=== PATIENT | male | born 1950 | race Caucasian/White ===

== ENCOUNTER → 2018-07-29 08:51 | Outpatient (CLI) | payer MEDICARE, OTHER, SELFPAY ==
[2018-07-29 10:42] LABS: ALB/GLOB Ratio 0.9 RATIO (0.9-2.4); AST(SGOT) 25 U/L (15-37); Alanine Aminotransfer ALT/SGPT 43 U/L (16-61); Albumin, Serum 3.6 g/dL (3.2-5.0); Alkaline Phosphatase 70 U/L (45-117); Anion Gap 8 (5-15); BUN 14 mg/dL (7-18); Calcium,Total 8.7 mg/dL (8.5-10.1); Chloride 109 mmol/L (98-107); Cholesterol 174 mg/dL (200); EST Glomerular Filtration Rate 79 mL/min (>60); Est Glom Filt Rate - Afr Amer 96 mL/min (>60); Globulin 3.8 g/dL (2.2-4.2); Glucose 93 mg/dL (74-106); High Density Lipoprotein 47 mg/dL; Potassium 3.9 mmol/L (3.5-5.1); Protein, Total 7.4 g/dL (6.4-8.2); Sodium Level 144 mmol/L (136-145); Triglycerides 148 mg/dL; Very Low Density Lipoprotein 30 mg/dL (5-40)
== END ==
PROVIDERS: Family Provider Family Medicine; PCP Family Medicine; Referring Provider Family Medicine; Visit Provider Family Medicine
DX: I10 Essential (primary) hypertension (principal); E78.00 Pure hypercholesterolemia, unspecified
CPT/HCPCS: 36415; 80053; 80061

== ENCOUNTER → 2019-10-06 09:28 | Outpatient (CLI) | payer MEDICARE, OTHER, SELFPAY ==
[2019-10-05 13:32] VITALS: BMI 37.0
[2019-10-06 13:24] LABS: ALB/GLOB Ratio 0.8 RATIO (0.9-2.4); AST(SGOT) 24 U/L (15-37); Alanine Aminotransfer ALT/SGPT 37 U/L (16-61); Albumin, Serum 3.4 g/dL (3.2-5.0); Alkaline Phosphatase 62 U/L (45-117); Anion Gap 8 (5-15); BUN 16 mg/dL (7-18); BUN/Creat Ratio 12.9 RATIO (10-20); Chloride 109 mmol/L (98-107); Cholesterol 162 mg/dL (200); Creatinine, Serum 1.24 mg/dL (0.70-1.30); EST Glomerular Filtration Rate 62 mL/min (>60); Est Glom Filt Rate - Afr Amer 74 mL/min (>60); Globulin 4.4 g/dL (2.2-4.2); Glucose 90 mg/dL (74-106); High Density Lipoprotein 51 mg/dL; Potassium 3.9 mmol/L (3.5-5.1); Protein, Total 7.8 g/dL (6.4-8.2); Sodium Level 142 mmol/L (136-145); Triglycerides 121 mg/dL; Very Low Density Lipoprotein 24 mg/dL (5-40)
== END ==
PROVIDERS: Family Provider Family Medicine; PCP Family Medicine; Visit Provider Family Medicine
DX: E78.00 Pure hypercholesterolemia, unspecified (principal)
CPT/HCPCS: 36415; 80053; 80061

== ENCOUNTER → 2020-10-05 12:18 | Outpatient (CLI) | payer MEDICARE, OTHER, SELFPAY ==
[2020-10-05 15:00] LABS: Hematocrit 38.9 % (40-54); Hemoglobin 13.4 g/dL (13.0-16.5); Mean Corp Hgb Conc 34.4 g/dL (32-36); Mean Corpuscular Volume 98.7 fL (80-94); Mean Platelet Vol. 9.5 fl (6.2-12.0); POSITIVE COUNT YES; POSITIVE MORPHOLOGY YES; Platelet Count 234 K/mm3 (150-450); RBC Distribution Width CV 13.2 % (11.6-14.6); RBC Distribution Width SD 46.7 fl (35.1-43.9); Red Blood Count 3.94 M/mm3 (4.6-6.2); White Blood Count 4.8 K/mm3 (4.4-11.0)
[2020-10-05 15:01] LABS: Differential Indicated MANUAL DIFF
[2020-10-05 15:20] LABS: Eosinophil 1 % (0-5); Lymphocyte 16 % (19-41); Metamyelocyte 4 % (0-1); Monocyte 13 % (0-10); Myelocyte 1 (0-0); Neutrophil-Band 1 % (0-5); Neutrophil-Segmented 63 % (47-70); Plasma Cell 1 %; Total Cells Counted 100 (MANUAL DIFF)
[2020-10-05 15:21] LABS: Platelet Estimate ADEQUATE (ADEQ); Red Cell Morphology NORM C+C NORMAL (NORM C&C)
[2020-10-05 15:22] LABS: Absolute Lymphocyte Count 0.77 X10^3/uL (0.83-4.51); Absolute Neutrophil Count 3.1 X10^3/uL (2.0-7.7)
[2020-10-05 15:42] LABS: ALB/GLOB Ratio 0.8 RATIO (0.9-2.4); AST(SGOT) 65 U/L (15-37); Alanine Aminotransfer ALT/SGPT 76 U/L (16-61); Albumin, Serum 3.5 g/dL (3.2-5.0); Alkaline Phosphatase 57 U/L (45-117); Anion Gap 11 (5-15); BUN 22 mg/dL (7-18); BUN/Creat Ratio 17.9 RATIO (10-20); Calcium,Total 9.1 mg/dL (8.5-10.1); Chloride 110 mmol/L (98-107); Creatinine, Serum 1.23 mg/dL (0.70-1.30); EST Glomerular Filtration Rate 62 mL/min (>60); Est Glom Filt Rate - Afr Amer 75 mL/min (>60); Globulin 4.5 g/dL (2.2-4.2); Glucose 91 mg/dL (74-106); Sodium Level 144 mmol/L (136-145); Thyroid Stim Hormone (TSH) 0.99 uIU/mL (0.358-3.74)
[2020-10-06 13:54] LABS: Pathologist Review Reviewed
== END ==
PROVIDERS: PCP Family Medicine; Referring Provider Internal Medicine; Visit Provider Internal Medicine
DX: U07.1 COVID-19 (principal); R53.83 Other fatigue; K52.9 Noninfective gastroenteritis and colitis, unspecified
CPT/HCPCS: 36415; 80053; 84443; 85025; 87635; U0003

== ENCOUNTER → 2021-02-27 11:54 | Outpatient (CLI) | payer MEDICARE, OTHER, SELFPAY ==
[2021-02-27 11:29] VITALS: BMI 37.0
[2021-02-27 15:28] LABS: ALB/GLOB Ratio 1.1 RATIO (0.9-2.4); AST(SGOT) 42 U/L (15-37); Alanine Aminotransfer ALT/SGPT 62 U/L (16-61); Albumin, Serum 3.8 g/dL (3.2-5.0); Alkaline Phosphatase 64 U/L (45-117); Anion Gap 5 (5-15); BUN 14 mg/dL (7-18); BUN/Creat Ratio 11.2 RATIO (10-20); Calcium,Total 8.9 mg/dL (8.5-10.1); Chloride 108 mmol/L (98-107); Creatinine, Serum 1.25 mg/dL (0.70-1.30); EST Glomerular Filtration Rate 61 mL/min (>60); Est Glom Filt Rate - Afr Amer 73 mL/min (>60); Globulin 3.6 g/dL (2.2-4.2); Glucose 94 mg/dL (74-106); Potassium 4.2 mmol/L (3.5-5.1); Protein, Total 7.4 g/dL (6.4-8.2); Sodium Level 140 mmol/L (136-145)
== END ==
PROVIDERS: PCP Family Medicine; Referring Provider Family Medicine; Visit Provider Family Medicine
DX: I10 Essential (primary) hypertension (principal)
CPT/HCPCS: 36415; 80053

== ENCOUNTER 2022-02-14 15:18 | Inpatient (IN) | payer MEDICARE, OTHER, SELFPAY ==
[2022-02-14 15:19] VITALS: TEMP 38.3; BMI 38.6
[2022-02-14 15:24] VITALS: BP 142/67; PULSE 103; RESP 21; O2SAT 98
--- NOTE | 2022-02-14 15:41 | EKG12_ITS ---
Test Reason : Blood Pressure : / mmHG Vent. Rate : 094 BPM Atrial Rate : 094 BPM P-R Int : 110 ms QRS Dur : 078 ms QT Int : 354 ms P-R-T Axes : 072 031 053 degrees QTc Int : 442 ms Sinus rhythm with short [place] with occasional Premature ventricular complexes Nonspecific ST abnormality Abnormal ECG Confirmed by THADDEUS ESTEVEZ, VIRIDIANA ([id number]), editor sound HANS NORRIS ([id number]) on 02/18/2022 1:51:51 PM Referred By: LINDA/PAIGE Confirmed By:GAIL TRAVIS MD
--- NOTE | 2022-02-14 15:42 | EDS_ITS ---
HPI History of Present Illness Chief Complaint: Weakness Informant: patient Onset/Context/Timing Onset: Today Quality: weak Location: all over Current Severity: Moderate Maximum Severity: Moderate Worsened by: unk Relieved by: nothing Associated Symptoms Associated Symptoms: increased swelling both legs Narrative Narrative: Patient presented after 2 separate falls today, he denies any injury with them, the first time EMS came it was about 5 AM and he refused to come to the hospital and said he was fine. He was ambulatory with his walker after that and then collapsed in the bathroom this afternoon just prior to arrival. Landed on his right side and denies any pain or injury from now. States he was fine yesterday able to walk with his walker okay. Today he states he feels weak all over, extremely different compared with yesterday. He denies any other new symptoms. He has chronic edema both legs, he does not leave the house and does not do much physical activity. He is on Lasix for the edema, he has been out of the Lasix for 2 weeks approximately. He is almost out of his blood pressure medication but has been out of no other medications recently. Family states they were unable to get him to stand on his own even with significant assistance today hence coming to the emergency department. [facility] Medical History (Updated 02/14/22 @ 16:[address] Sean Arreola MD) Arthritis Hearing problem High cholesterol Hypertension Kidney stones Spinal stenosis of lumbar region Home Medications multivitamin 1 tab PO DAILY 10/05/19 [History Last Taken 02/14/22] amlodipine-benazepril 1 cap PO DAILY 02/14/22 [History Last Taken 02/14/22] furosemide 20 mg PO DAILY 02/14/22 [History Last Taken 2 Weeks Ago ~01/31/22] Allergy/AdvReac Type Severity Reaction Status Date / Time No Known Allergies Allergy Verified 02/27/21 11:28 Family History Father Heart disease Hypertension Mother Diabetes Surgical History History of nasal surgery history stapedectomy Social History Smoking Status: Never smoker alcohol intake: current alcohol intake frequency: holidays/special occasions only substance use type: does not use what type of physical activity do you participate in: none ROS ROS ED Constitutional Constitutional ED: Denies chills or fever(s) Eyes Eyes: Denies change in vision or diplopia ENT ENT ED: Denies rhinorrhea or sore throat Cardiovascular Cardiovascular: Reports pedal edema; Denies chest pain or palpitations Respiratory/Chest Respiratory/Chest: Denies cough or dyspnea Gastrointestinal Gastrointestinal: Denies abdominal pain, diarrhea, nausea or vomiting Genitourinary Genitourinary ED: Denies dysuria or hematuria Musculoskeletal Musculoskeletal: Denies back pain or neck pain Integumentary Denies abscess or rash Neurologic Neurologic: Reports other Details: generalized nonfocal weakness ; Denies headache(s), paresthesias or weakness Psychiatric Psychiatric: Denies anxiety or suicidal thoughts EXAM Physical Exam Const Vital Signs: 02/14/22 15:19 02/14/22 15:24 02/14/22 15:59 Temperature 100.9 F H Temperature Source Oral Pulse Rate 103 H Respiratory Rate 21 H Respiratory Pattern Normal Blood Pressure 142/67 H Blood Pressure Mean 92 Pulse Ox 98 Oxygen Delivery Method Room Air Room Air 02/14/22 17:59 Temperature Temperature Source Pulse Rate 97 Respiratory Rate 23 H Respiratory Pattern Blood Pressure 140/81 H Blood Pressure Mean 100 Pulse Ox 97 Oxygen Delivery Method Room Air Positive well nourished, well developed, obese and unkempt General Appearance ED: unkempt, well developed and NAD Nutritional Appearance: obese HEENT Reports moist mucous membranes normocephalic and atraumatic Eyes PERRL and EOMs intact bilaterally Neck full ROM and supple Chest Wall inspection of chest normal and palpation of chest normal Resp normal respiratory effort and clear to auscultation bilaterally Cardio regular rate and regular rhythm Heart Sounds: murmur systolic II/ decrescendo left sternal border GI non-tender and non-distended Auscultation: normoactive bowel sounds Palpation: soft Back/Spine no CVA tenderness Back/Spine Narrative: Nontender, nonerythematous raised calluses on low back. No open wounds. General Back: other FROM Extremity normal to inspection Extremity Narrative: Diffuse scaly calluses without tenderness or open wounds on both feet. Chronic stasis dermatitis of both lower legs without signs of acute infection/wound. General Extremety ED: Yes edema; Negative for pulses abnormal or tenderness General Extremity: edema bilateral lower extremity Details: moderate; Negative for pulses abnormal Neuro oriented x3, CN's II-XII intact bilaterally and no sensory deficits noted Sensorium / Orientation: awake and alert Motor Exam: strength 5/5 throughout Psych Appearance: unkempt Skin no rashes or lesions noted and no wounds MDM MDM MDM Narrative Medical decision making narrative: Work-up unremarkable except for a slightly elevated creatinine compared with baseline. He was given Lasix 20 mg IV, he used to be on Lasix 20 mg orally daily, he only urinated a little. Given that he is too weak to stand and function, lots of leg edema, plan is for admission with diuresis and further evaluation/treatment. Lab Data Attestation: I reviewed the patient's lab results. Labs: Laboratory Results - last 24 hr 02/14/22 02/14/22 02/14/22 15:50 15:50 15:50 WBC 6.0 RBC 3.91 L Hgb 13.6 Hct 38.8 L MCV 99.2 H MCH 34.8 H MCHC 35.1 RDW Std Deviation 49.0 H RDW Coeff of Lucien 13.8 Plt Count 129 L MPV 9.2 Immature Gran % (Auto) 1.200 H Neut % (Auto) 75.0 H Lymph % (Auto) 11.2 L [place] % (Auto) 12.4 H Eos % (Auto) 0.0 Baso % (Auto) 0.2 Absolute Neuts (auto) 4.5 Absolute Lymphs (auto) 0.67 L Nucleated RBC % 0 Sodium 140 Potassium 4.0 Chloride 109 H Carbon Dioxide 26.0 Anion Gap 5 BUN 16 Creatinine 1.42 H Estim Creat Clear Calc 49.27 Est GFR (MDRD) Af Amer 63 Est GFR (MDRD) Non-Af 52 L BUN/Creatinine Ratio 11.3 Glucose 127 H Lactic Acid 1.8 Calcium 8.8 Total Bilirubin 1.20 H AST 34 ALT 42 Alkaline Phosphatase 56 Troponin I High Sens 7 Total Protein 7.7 Albumin 3.6 Globulin 4.1 Albumin/Globulin Ratio 0.9 Urine Color Urine Clarity Urine pH Ur Specific [place] Urine Protein Urine Glucose (UA) Urine Ketones Urine Occult Blood Urine Nitrite Urine Bilirubin Urine Urobilinogen Ur Leukocyte Esterase Urine RBC Urine WBC Ur Squamous Epith Cells Urine Bacteria Urine Mucus 02/14/22 17:17 WBC RBC Hgb Hct MCV MCH MCHC RDW Std Deviation RDW Coeff of Lucien Plt Count MPV Immature Gran % (Auto) Neut % (Auto) Lymph % (Auto) [place] % (Auto) Eos % (Auto) Baso % (Auto) Absolute Neuts (auto) Absolute Lymphs (auto) Nucleated RBC % Sodium Potassium Chloride Carbon Dioxide Anion Gap BUN Creatinine Estim Creat Clear Calc Est GFR (MDRD) Af Amer Est GFR (MDRD) Non-Af BUN/Creatinine Ratio Glucose Lactic Acid Calcium Total Bilirubin AST ALT Alkaline Phosphatase Troponin I High Sens Total Protein Albumin Globulin Albumin/Globulin Ratio Urine Color Yellow Urine Clarity Clear Urine pH 5.0 Ur Specific [place] 1.015 Urine Protein Negative Urine Glucose (UA) Normal Urine Ketones Negative Urine Occult Blood Negative Urine Nitrite Negative Urine Bilirubin Negative Urine Urobilinogen Normal Ur Leukocyte Esterase Negative Urine RBC 0 SEEN Urine WBC 0 SEEN Ur Squamous Epith Cells 0 SEEN Urine Bacteria 0 SEEN Urine Mucus 0 SEEN Radiography Chest X-Ray - ED: 1 View, Read by ED Physician and No Acute Disease Diagnostic Testing: Clinical Impression(s) from Imaging Studies Chest X-Ray 02/14/22 16:10 IMPRESSION: Normal x-ray examination of the chest. Electronically Signed: Ino Pinedo DO at 16:44 EDT Reading Location ID and State: [facility] / [place] Tel [phone], Service support , EKG Initial EKG: Attestation: I personally reviewed and interpreted this EKG as follows: Interpretation: Sinus Rhythm, No Acute Injury Pattern and Non-Specific ST Changes Prior EKG tracings: not available for review Discharge Plan Dx/Rx/DC Orders Clinical Impression: Inability to walk, Bilateral leg edema, Generalized weakness Disposition Disposition: Acute Care Hospital [facility]
[2022-02-14 16:09] LABS: Absolute Lymphocyte Count 0.67 X10^3/uL (0.83-4.51); Absolute Neutrophil Count 4.5 X10^3/uL (2.0-7.7); Basophil# 0.01 X10^3/uL; Basophil% 0.2 % (0-1); Hematocrit 38.8 % (40-54); Hemoglobin 13.6 g/dL (13.0-16.5); Lymphocyte # 0.67 X10^3/ul (0.83-4.51); Lymphocyte % 11.2 % (19-41); Mean Corp Hgb Conc 35.1 g/dL (32-36); Mean Corpuscular Hgb 34.8 pg (27.0-32.0); Mean Corpuscular Volume 99.2 fL (80-94); Mean Platelet Vol. 9.2 fl (6.2-12.0); Monocyte# 0.74 X10^3/uL; Monocyte% 12.4 % (0-10); NRBC Flagged by Analyzer 0 % (0-5); Neutrophil # 4.49 X10^3/uL (2.7-7.7); Platelet Count 129 K/mm3 (150-450); RBC Distribution Width CV 13.8 % (11.6-14.6); Red Blood Count 3.91 M/mm3 (4.6-6.2)
--- NOTE | 2022-02-14 16:10 | RAD_ITS ---
STUDY: X-RAY CHEST REASON FOR EXAM: Male, 71 years old. Weakness TECHNIQUE: Frontal view COMPARISON: 10/22/2012 FINDINGS: The lungs are clear and expanded. There is no demonstrated pleural abnormality. Normal size heart. Normal mediastinum and ashley. Normal visualized pulmonary arteries. Normal visualized aortic arch and descending thoracic aorta. Normal visualized thoracic spine. Normal visualized ribs, clavicles, and shoulders. There is no demonstrated abnormality of the visualized soft tissue structures of the upper abdomen. RAD/Chest 1 View (Portable) IMPRESSION: Normal x-ray examination of the chest. Electronically Signed: Ino Pinedo DO at 16:44 EDT ,
[2022-02-14] MEDS: Furosemide 20 MG/2 ML VIAL IV (16:30)
[2022-02-14 16:31] LABS: Lactic Acid 1.8 mmol/L (0.4-1.9)
[2022-02-14 16:35] LABS: ALB/GLOB Ratio 0.9 RATIO (0.9-2.4); AST(SGOT) 34 U/L (15-37); Alanine Aminotransfer ALT/SGPT 42 U/L (16-61); Albumin, Serum 3.6 g/dL (3.2-5.0); Alkaline Phosphatase 56 U/L (45-117); Anion Gap 5 (5-15); BUN 16 mg/dL (7-18); BUN/Creat Ratio 11.3 RATIO (10-20); Calcium,Total 8.8 mg/dL (8.5-10.1); Chloride 109 mmol/L (98-107); Creatinine, Serum 1.42 mg/dL (0.70-1.30); EST Glomerular Filtration Rate 52 mL/min (>60); Est Glom Filt Rate - Afr Amer 63 mL/min (>60); Estimated Creatinine Clearance 49.27 ml/min; Globulin 4.1 g/dL (2.2-4.2); Glucose 127 mg/dL (74-106); Protein, Total 7.7 g/dL (6.4-8.2); Sodium Level 140 mmol/L (136-145); Troponin-I HS 7 pg/mL (3.0-78.0)
[2022-02-14 17:22] LABS: Bacteria 0 SEEN /hpf (None Seen); Mucous, Urine 0 SEEN /hpf (<or=2+); Red Blood Cells-Urine 0 SEEN /hpf (0-5); Squamous Epithelial Cells - UA 0 SEEN /hpf (0-5); White Blood Cells 0 SEEN /hpf (0-5)
[2022-02-14 17:32] LABS: Color, Urine Yellow (Yellow); Glucose, Dipstick Normal (Normal); Ketone-Dipstick Negative (Negative); Leukocyte Esterase-Dipstick Negative /ul (Negative); Nitrite-Dipstick Negative (Negative); Occult Blood-Urine Negative /ul (Negative); Protein-Dipstick Negative (Negative); Specific Gravity, Urine 1.015 (1.002-1.030); Urine Bilirubin Dipstick Negative (Negative); Urine Clarity Clear (Clear); Urine Urobilinogen Normal (Normal)
[2022-02-14 17:59] VITALS: BP 140/81; PULSE 97; RESP 23; O2SAT 97
[2022-02-14 18:48] VITALS: BP 122/73; PULSE 91; RESP 15; TEMP 37.6; O2SAT 97
[2022-02-14 19:00] VITALS: BP 134/64; PULSE 89; RESP 20; O2SAT 97
--- NOTE | 2022-02-14 19:33 | PCM.HP.STD ---
HPI - General General Date of Admission: 02/14/22 HPI Narrative ZACHERY PATEL, is a 71 M who presents to the hospital with weakness. He states yesterday he felt fine however today he fell twice and normally he is able to pull himself up if he needs to but today after he he had fallen he was unable to pull himself up at all due to upper extremity weakness. He said the first fall happened when his legs did not support him on the side of the bed and he slid to the ground. The second fall occurred when his walker got away from him and he fell to the ground and he was unable to get up. Denies hitting his head. Chest x-ray was unremarkable, and UA does not show an infection. He denies any signs of a skin infection or cellulitis denies any fevers or chills. No shortness of breath or chest pain. He has not been taking his Lasix because he ran out of the prescription and has noticed that his legs are more swollen than normal. [facility] Medical History Arthritis Hearing problem High cholesterol Hypertension Kidney stones Spinal stenosis of lumbar region Home Medications multivitamin 1 tab PO DAILY 10/05/19 [History Last Taken 02/14/22] amlodipine-benazepril 1 cap PO DAILY 02/14/22 [History Last Taken 02/14/22] furosemide 20 mg PO DAILY 02/14/22 [History Last Taken 2 Weeks Ago ~01/31/22] Allergy/AdvReac Type Severity Reaction Status Date / Time No Known Allergies Allergy Verified 02/27/21 11:28 Family History Father Heart disease Hypertension Mother Diabetes Surgical History History of nasal surgery history stapedectomy Social History Smoking Status: Never smoker alcohol intake: current alcohol intake frequency: holidays/special occasions only substance use type: does not use what type of physical activity do you participate in: none ROS Constitutional Constitutional: Reports weakness; Denies chills, fatigue, fever(s) or malaise Eyes Eyes: Denies blurry vision ENT HEENT: Denies headache(s) or nasal discharge Cardiovascular Cardiovascular: Denies chest pain, dyspnea on exertion or syncope Respiratory/Chest Respiratory/Chest: Denies cough, shortness of breath at rest or shortness of breath with exertion Gastrointestinal Gastrointestinal: Denies constipation, diarrhea, nausea or vomiting Genitourinary Genitourinary: Denies dysuria Neurologic Neurologic: Denies focal weakness, numbness or tremor(s) Psychiatric Psychiatric: Denies anxiety or depression Vital Signs Vital Signs Vital Signs: 02/14/22 15:19 02/14/22 15:24 02/14/22 15:59 Temperature 100.9 F H Temperature Source Oral Pulse Rate 103 H Respiratory Rate 21 H Respiratory Pattern Normal Blood Pressure 142/67 H Blood Pressure Mean 92 Pulse Ox 98 Oxygen Delivery Method Room Air Room Air 02/14/22 17:59 02/14/22 18:48 02/14/22 19:00 Temperature 99.7 F H Temperature Source Temporal Pulse Rate 97 91 89 Respiratory Rate 23 H 15 20 H Respiratory Pattern Blood Pressure 140/81 H 122/73 H 134/64 H Blood Pressure Mean 100 89 87 Pulse Ox 97 97 97 Oxygen Delivery Method Room Air Room Air Room Air Weight Weight: 269 lb 2.951 oz Body Mass Index (BMI) 38.6 Physical Exam Const alert and oriented x3 General Appearance: cooperative HEENT normocephalic and moist oral mucous membranes Eyes PERRL, EOMs intact bilaterally and conjunctivae normal Neck supple and no JVD Resp normal respiratory effort, no retractions, no use of accessory muscles and clear to auscultation bilaterally Auscultation: Negative for crackles, rales, rhonchi or wheezes Cardio regular rate, regular rhythm, S1 normal heart sound, S2 normal heart sound and no murmurs GI soft to palpation, non-tender and non-distended; Negative for hepatosplenomegaly Extremity General Extremity: edema; Negative for clubbing or cyanosis Skin no rashes or lesions noted Neuro no focal motor deficits and no sensory deficits noted Psych affect normal Appearance: appropriate Results Lab / Micro Data Result Diagrams: 02/14/22 15:50 02/14/22 15:50 Labs: Laboratory Results - last 24 hr 02/14/22 15:50: WBC 6.0, RBC 3.91 L, Hgb 13.6, Hct 38.8 L, MCV 99.2 H, MCH 34.8 H, MCHC 35.1, RDW Std Deviation 49.0 H, RDW Coeff of Lucien 13.8, Plt Count 129 L, MPV 9.2, Immature Gran % (Auto) 1.200 H, Neut % (Auto) 75.0 H, Lymph % (Auto) 11.2 L, [place] % (Auto) 12.4 H, Eos % (Auto) 0.0, Baso % (Auto) 0.2, Absolute Neuts (auto) 4.5, Absolute Lymphs (auto) 0.67 L, Nucleated RBC % 0 02/14/22 15:50: Sodium 140, Potassium 4.0, Chloride 109 H, Carbon Dioxide 26.0, Anion Gap 5, BUN 16, Creatinine 1.42 H, Estim Creat Clear Calc 49.27, Est GFR (MDRD) Af Amer 63, Est GFR (MDRD) Non-Af 52 L, BUN/Creatinine Ratio 11.3, Glucose 127 H, Calcium 8.8, Total Bilirubin 1.20 H, AST 34, ALT 42, Alkaline Phosphatase 56, Troponin I High Sens 7, Total Protein 7.7, Albumin 3.6, Globulin 4.1, Albumin/Globulin Ratio 0.9 02/14/22 15:50: Lactic Acid 1.8 02/14/22 17:17: Urine Color Yellow, Urine Clarity Clear, Urine pH 5.0, Ur Specific [place] 1.015, Urine Protein Negative, Urine Glucose (UA) Normal, Urine Ketones Negative, Urine Occult Blood Negative, Urine Nitrite Negative, Urine Bilirubin Negative, Urine Urobilinogen Normal, Ur Leukocyte Esterase Negative, Urine RBC 0 SEEN, Urine WBC 0 SEEN, Ur Squamous Epith Cells 0 SEEN, Urine Bacteria 0 SEEN, Urine Mucus 0 SEEN Radiology Impression Chest X-Ray 02/14/22 16:10 IMPRESSION: Normal x-ray examination of the chest. Electronically Signed: Ino Pinedo DO at 16:44 EDT Reading Location ID and State: [facility] / [place] Tel [phone], Service support , Assessment & Plan Assessment/Plan (1) Bilateral leg edema: (2) Generalized weakness: PLAN: 1. Generalized weakness with inability to complete ADLs ?Unsure as to the etiology at this time, infectious work-up so far is negative ?Creatinine is elevated to 1.42 however this is not consistent with an JONATHON as his baseline is around 1.2 he was given 20 mg of IV Lasix in the ER ?We will follow-up electrolytes in the morning ?PT/OT for evaluation, may need placement 2. HTN/edema ?Continue with his home Norvasc and benazepril combination ?Blood pressures are stable ?Part of the swelling could be as a side effect to his amlodipine ?I do not see anywhere in the chart where he is ever had an echo however his symptomatology is not consistent with CHF at this time DVT: Lovenox Charges/Coding Visit Charges OBSV E&M: 30553 Initial observation care L2
[2022-02-14 19:41] VITALS: BMI 37.7
[2022-02-14 19:45] VITALS: BP 138/72; PULSE 90; RESP 18; TEMP 36.9; O2SAT 96
[2022-02-14] MEDS: Menthol/Lanolin/Calamine/Znox 113 GM Tube 1 APPLIC TOPICAL (22:47)
[2022-02-14] MEDS: Nystatin Ointment 1 APPLIC TOPICAL (22:48)
[2022-02-15 02:28] VITALS: BP 123/70; PULSE 91; RESP 16; TEMP 37.4; O2SAT 93
[2022-02-15] MEDS: Nystatin Ointment 1 APPLIC TOPICAL ×3 (05:33→23:57)
[2022-02-15] MEDS: Menthol/Lanolin/Calamine/Znox 113 GM Tube 1 APPLIC TOPICAL ×3 (05:33→23:57)
[2022-02-15 05:46] LABS: Absolute Lymphocyte Count 0.97 X10^3/uL (0.83-4.51); Absolute Neutrophil Count 4.1 X10^3/uL (2.0-7.7); Basophil# 0.02 X10^3/uL; Basophil% 0.3 % (0-1); Eosinophil# 0.03 X10^3/uL; Eosinophils% 0.5 % (0-5); Hematocrit 36.7 % (40-54); Hemoglobin 12.6 g/dL (13.0-16.5); Lymphocyte # 0.97 X10^3/ul (0.83-4.51); Mean Corp Hgb Conc 34.3 g/dL (32-36); Mean Corpuscular Hgb 34.3 pg (27.0-32.0); Mean Platelet Vol. 9.2 fl (6.2-12.0); Monocyte# 0.87 X10^3/uL; Monocyte% 14.4 % (0-10); NRBC Flagged by Analyzer 0 % (0-5); Neutrophil % 67.8 % (47-70); Platelet Count 115 K/mm3 (150-450); RBC Distribution Width CV 13.8 % (11.6-14.6); RBC Distribution Width SD 49.5 fl (35.1-43.9); Red Blood Count 3.67 M/mm3 (4.6-6.2); White Blood Count 6.1 K/mm3 (4.4-11.0)
[2022-02-15 06:07] LABS: Anion Gap 3 (5-15); BUN 18 mg/dL (7-18); BUN/Creat Ratio 14.8 RATIO (10-20); Calcium,Total 8.3 mg/dL (8.5-10.1); Chloride 108 mmol/L (98-107); Creatinine, Serum 1.22 mg/dL (0.70-1.30); EST Glomerular Filtration Rate 62 mL/min (>60); Est Glom Filt Rate - Afr Amer 75 mL/min (>60); Estimated Creatinine Clearance 57.34 ml/min; Glucose 116 mg/dL (74-106); Potassium 3.8 mmol/L (3.5-5.1); Sodium Level 139 mmol/L (136-145)
[2022-02-15 07:37] LABS: Magnesium 1.8 mg/dL (1.6-2.6); Phosphorus 2.9 mg/dL (2.5-4.9)
--- NOTE | 2022-02-15 07:58 | PCM.PN.HOSP ---
Subjective Subjective Follow-up on debility, worsening right leg weakness: Patient was seen and examined. He complains of unable to stand that was noticed yesterday. He has history of chronic back pain from spinal stenosis and uses a walker at baseline. He denied any fever or chills. Objective Data Objective Data Vital Signs: Vital Signs Temp Pulse Resp BP Pulse Ox 99.3 F H 91 16 123/70 H 93 02/15/22 02:28 02/15/22 02:28 02/15/22 02:28 02/15/22 02:28 02/15/22 02:28 Oxygen Delivery Method Room Air Weight: 119.5 kg Body Mass Index (BMI) 37.7 Intake & Output: Intake and Output for Last 24 Hours 02/13/22 02/14/22 02/15/22 23:59 23:59 23:59 Intake Total 50 / 50 Output Total 300 / 300 Balance -300 / -300 50 / 50 Lab / Micro Data Result Diagrams: 02/15/22 05:20 02/15/22 05:20 Labs: Laboratory Results - last 24 hr 02/14/22 15:50: WBC 6.0, RBC 3.91 L, Hgb 13.6, Hct 38.8 L, MCV 99.2 H, MCH 34.8 H, MCHC 35.1, RDW Std Deviation 49.0 H, RDW Coeff of Lucien 13.8, Plt Count 129 L, MPV 9.2, Immature Gran % (Auto) 1.200 H, Neut % (Auto) 75.0 H, Lymph % (Auto) 11.2 L, [place] % (Auto) 12.4 H, Eos % (Auto) 0.0, Baso % (Auto) 0.2, Absolute Neuts (auto) 4.5, Absolute Lymphs (auto) 0.67 L, Nucleated RBC % 0 02/14/22 15:50: Sodium 140, Potassium 4.0, Chloride 109 H, Carbon Dioxide 26.0, Anion Gap 5, BUN 16, Creatinine 1.42 H, Estim Creat Clear Calc 49.27, Est GFR (MDRD) Af Amer 63, Est GFR (MDRD) Non-Af 52 L, BUN/Creatinine Ratio 11.3, Glucose 127 H, Calcium 8.8, Total Bilirubin 1.20 H, AST 34, ALT 42, Alkaline Phosphatase 56, Troponin I High Sens 7, Total Protein 7.7, Albumin 3.6, Globulin 4.1, Albumin/Globulin Ratio 0.9 02/14/22 15:50: Lactic Acid 1.8 02/14/22 17:17: Urine Color Yellow, Urine Clarity Clear, Urine pH 5.0, Ur Specific [place] 1.015, Urine Protein Negative, Urine Glucose (UA) Normal, Urine Ketones Negative, Urine Occult Blood Negative, Urine Nitrite Negative, Urine Bilirubin Negative, Urine Urobilinogen Normal, Ur Leukocyte Esterase Negative, Urine RBC 0 SEEN, Urine WBC 0 SEEN, Ur Squamous Epith Cells 0 SEEN, Urine Bacteria 0 SEEN, Urine Mucus 0 SEEN 02/15/22 05:20: WBC 6.1, RBC 3.67 L, Hgb 12.6 L, Hct 36.7 L, MCV 100.0 H, MCH 34.3 H, MCHC 34.3, RDW Std Deviation 49.5 H, RDW Coeff of Lucien 13.8, Plt Count 115 L, MPV 9.2, Immature Gran % (Auto) 1.000 H, Neut % (Auto) 67.8, Lymph % (Auto) 16.0 L, [place] % (Auto) 14.4 H, Eos % (Auto) 0.5, Baso % (Auto) 0.3, Absolute Neuts (auto) 4.1, Absolute Lymphs (auto) 0.97, Nucleated RBC % 0 02/15/22 05:20: Sodium 139, Potassium 3.8, Chloride 108 H, Carbon Dioxide 28.0, Anion Gap 3 L, BUN 18, Creatinine 1.22, Estim Creat Clear Calc 57.34, Est GFR (MDRD) Af Amer 75, Est GFR (MDRD) Non-Af 62, BUN/Creatinine Ratio 14.8, Glucose 116 H, Calcium 8.3 L 02/15/22 05:20: Phosphorus 2.9, Magnesium 1.8 Radiography Diagnostic Testing: Radiology Impression Chest X-Ray 02/14/22 16:10 IMPRESSION: Normal x-ray examination of the chest. Electronically Signed: Ino Pinedo DO at 16:44 EDT Reading Location ID and State: [facility] / [place] Tel [phone], Service support , Physical Exam Narrative Physical exam: General: Alert, Oriented x3, Cooperative, No apparent distress, HEENT: Atraumatic Oral: Moist Mucosa Neck: Supple Lungs: Diminished to auscultation Cardiovascular: HS I+II, regular, no murmurs Abdomen: Bowel Sounds Present, Soft, Non Tender Extremities: Bilateral leg edema +1 Skin: No rashes, No breakdown Neurological: Bilateral leg weakness, 3/5 in RLE, 4/5 in LLE Psych/Mental Status: Appropriate Assessment & Plan Assessment/Plan (1) Bilateral leg edema: (2) Generalized weakness: PLAN: 1. 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 Patient denies any incontinence of urine or stool We will repeat MRI of the thoracic and lumbar spine PT/OT to evaluate and treat Social work for discharge planning Check phosphorus and magnesium levels 2. Hypertension, controlled, continue on amlodipine and lisinopril Will switch from amlodipine after reviewing ECHO results 3. Generalised edema, unclear if he has history of cardiomyopathy Patient is on Lasix at home We will check 2D echo, BNpep 4. DVT PPx- Lovenox SC Charges/Coding Visit Charges OBSV E&M: 47995 Subsequent observation care L3
[2022-02-15] MEDS: Lisinopril 20 MG Tablet PO (08:19)
[2022-02-15] MEDS: Multivitamins,Therapeutic Tablet 1 TABLET PO (08:20)
[2022-02-15] MEDS: Furosemide 20 MG Tablet PO ×2 (08:20→17:07)
[2022-02-15] MEDS: Enoxaparin 40 MG/0.4 ML Syringe SC (08:20)
[2022-02-15] MEDS: amLODIPine 10 MG Tablet PO (08:20)
--- NOTE | 2022-02-15 08:26 | WOUNDNOTE ---
Was asked to see patient for redness to the abdomen. patient has a pink scar noted which patient states is from rubbing on his belt. patient also has some dry brown moles scattered along the spine and to the upper buttock areas. patient has a small slit noted to the yessenia cleft from a previous pilonidal cyst removal. patient also has some dry skin noted to bilateral legs and feet. lotion applied. there is no need for wound care at this time. see skin photos.
--- NOTE | 2022-02-15 08:33 | WOUNDNOTE ---
skin photo: abdomen
--- NOTE | 2022-02-15 08:34 | WOUNDNOTE ---
skin photo: back
--- NOTE | 2022-02-15 08:35 | WOUNDNOTE ---
skin photo: legs
--- NOTE | 2022-02-15 08:40 | ECHOCS_ITS ---
Reason For Study: SOB Procedure This was a 2D Doppler, Color Flow transthoracic echocardiogram. The study was technically difficult. Exam performed portable in patient room. The exam was abbreviated due to the COVID 19 protocol. Left Ventricle Normal LV size. The estimated ejection fraction is 65 %. Unable to assess diastolic dysfunction. No regional wall motion abnormalities noted. Right Ventricle Normal RV size. Normal systolic function. Atria Normal left atrium. Normal right atrium. No doppler evidence for ASD. Mitral Valve There is no mitral valve stenosis. No mitral valve insufficiency. Tricuspid Valve There is no tricuspid stenosis. Trivial tricuspid valve insufficiency. Unable to estimate RV systolic pressure due to insufficient tricuspid regurgitant envelope. Aortic Valve Mild diffuse aortic valve thickening. Mild aortic stenosis. No aortic valve insufficiency. Pulmonic Valve There is no pulmonic valvular stenosis. No pulmonic valve insufficiency. Great Vessels Normal aortic root. Pericardium/Pleural No pericardial effusion. Medication Diluted definity 2ml given slow IV push to enhance endocardial definition. MMode/2D Measurements & Calculations LVIDd: 3.9 cm IVSd: 1.4 cm LVOT diam: 2.1 cm LVIDs: 2.8 cm LVPWd: 1.4 cm FS: 27.4 % LVOT area: 3.5 cm2 LVAd ap4: 24.9 cm2 SV(MOD-sp4): 43.5 ml SV(sp4-el): 42.9 ml LVLd ap4: 7.0 cm EDV(MOD-sp4): 74.8 ml EDV(sp4-el): 75.2 ml LVAs ap4: 14.8 cm2 LVLs ap4: 5.7 cm ESV(MOD-sp4): 31.3 ml ESV(sp4-el): 32.3 ml EF(MOD-sp4): 58.1 % EF(sp4-el): 57.0 % Doppler Measurements & Calculations MV E max amado: 53.4 cm/sec Lat Peak E' Amado: 7.7 cm/sec Med Peak E' Maado: 5.6 cm/sec MV A max amado: 75.9 cm/sec E/E' lat: 6.9 E/E' med: 9.6 MV E/A: 0.70 Ao V2 max: 252.7 cm/sec LV V1 max: 92.1 cm/sec SV(LVOT): 54.4 ml Ao max P.6 mmHg LV V1 max P.4 mmHg Ao V2 mean: 172.0 cm/sec LV V1 mean P.7 mmHg Ao mean P.4 mmHg LV V1 mean: 61.0 cm/sec Ao V2 VTI: 42.1 cm LV V1 VTI: 15.5 cm CLARITA(I,D): 1.3 cm2 CLARITA(V,D): 1.3 cm2 PA V2 max: 106.3 cm/sec ECHO/Echo Complete W/ Contrast Interpretation Summary The estimated ejection fraction is 65 %. Unable to assess diastolic dysfunction. Mild aortic stenosis. Ordering Physician: Disha Arredondo Referring Physician: Asher Peña M.D. Performed By: Shannon Gaming RDCS
[2022-02-15 08:45] VITALS: BP 124/72; PULSE 98; RESP 16; TEMP 37.7; O2SAT 95
--- NOTE | 2022-02-15 08:49 | MRI_ITS ---
STUDY: MRI LUMBAR SPINE WITHOUT CONTRAST REASON FOR EXAM: Male, 71 years old. Leg weakness spinal stenosis falls TECHNIQUE: Standardized fat and water weighted pulse sequences were obtained in the sagittal and axial planes. COMPARISON: 11 December 2015 FINDINGS: Appearance is similar to prior with expected progression of degeneration over the last 6 years. Lumbar spine is intact and aligned with multilevel disc and endplate degeneration. Aorta is normal caliber. Conus terminates at L1. Spinal cord is at least moderately compressed at T11-T12 by disc bulge. However, this is incompletely imaged and only seen on the sagittal views. T12-L1 has patent canal. Thecal sac is severely compressed at L1-L2, L2-L3, L3-L4. Foramina are moderately stenotic bilaterally at all levels. MRI/Spine Lumbar (Routine) IMPRESSION: 1. T11-T12 moderate cord compression, refer to dedicated thoracic imaging. 2. Severe chronic L1-L2, L2-L3 and L3-L4 thecal sac stenosis. 3. Comparable appearance to 6 years prior. Electronically Signed: Tiny Hernández MD at 11:48 EDT ,
--- NOTE | 2022-02-15 08:49 | MRI_ITS ---
STUDY: MRI THORACIC SPINE WITHOUT CONTRAST REASON FOR EXAM: Male, 71 years old. Leg weakness,stenosis,falls TECHNIQUE: Standardized fat and water weighted pulse sequences were obtained in the sagittal and axial planes. COMPARISON: 28 December 2015 FINDINGS: Appearance is stable for 6 years since 2016. Thoracic spine is intact and aligned with normal marrow. There is multilevel degeneration with disc herniations at T8-T9 and T11-T12 moderately compressing the cord. Conus terminates at L1. MRI/Spine Thoracic (Routine) IMPRESSION: 1. 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 2. 6 years stability since 2015. Electronically Signed: Tiny Hernández MD at 14:59 EDT ,
[2022-02-15 09:05] LABS: BNP,B-Type NATRIURETIC PEPTIDE 19.9 pg/mL (0-100)
--- NOTE | 2022-02-15 09:31 | NURSING ---
pt to mri
[2022-02-15] MEDS: 0.9% Saline Lock 10 ML Syringe IV (10:34)
[2022-02-15] MEDS: Furosemide 20 MG/2 ML VIAL IV (10:34)
--- NOTE | 2022-02-15 12:00 | CASEMGMT ---
Social Work SW to room to meet with patient for initial assessment. SW introduced self and role at [facility]. Pt voices understanding and consents to assessment at this time. Pt sitting in chair and in no distress at this time. Pt is A/O x3 and answers all questions appropriately. Care providers, pharmacy, and demographics verified at this time. PCP: Dr. Peña Specialists: none Preferred Pharmacy: [facility] Insurance: Medicare Prescription Benefit: Yes Living Will/HPOA: No. Pt would like information. Information provided to pt including SW rack card with information on completing. LNOK: Keerthi Beranbe. Pt 16 year old son and 13 year old daughter also live in the home Living Arrangements: Pt lives in a 3 story home with 15 steps to enter. Once inside pt can reside on one floor. Pt states he does not regularly shower but is able to dress himself except for his socks and shoes which his family assists. Pt family assists with all IADLs. Transportation: Pt does not drive, provides all transportation DME: Walker, shower chair, hand rails for toilet. Pt has a stair lift to get into home, however it is not working and he has not been able to find someone to fix the lift. HHC/SNF: none Substance Use: pt denies Mental Health: pt denies any concerns PLAN: SW spoke with pt regarding discharge plans. Pt hospitalized with weakness, falls at home and difficulty walking. Pt states he can return home. SW inquired about getting up stairs and pt states he can make it work. SW presented options of home health therapy, TCU and free standing SNFs. List of SNF providers including quality and resource use data and consistent with the patient's preferred geographic region, medical needs and insurance network given to pt. Pt states he needs to speak to his spouse about decision. Spouse to be in this afternoon. SW will meet with pt and when she arrives to discuss discharge plan. Will watch PT/OT for further recommendations. RONEN De La Cruz
[2022-02-15] MEDS: Acetaminophen 325 MG Tablet 650 MG PO (12:19)
[2022-02-15 12:31] VITALS: BP 117/65; PULSE 103; RESP 16; TEMP 38.1; O2SAT 95
--- NOTE | 2022-02-15 14:43 | CASEMGMT ---
Social Work SW reviewed therapy notes. Pt required Max A x2 for transfers and only able to take 2 steps. Phone call to pt room to discuss pt ability with therapy and discharge plan. Pt stating that therapy went pretty good. SW reminded pt that he was not able to walk more than 2 steps with therapy with much assistance and pt has 15 steps into home. Pt has not talked to his yet but gave permission for SW to call her. Phone call to pt and discussed therapy and discharge plan. Pt in favor of short term SNF placement. List of options read to pt . Pt would prefer [facility]. She plans to visit pt shortly and discuss with pt and will notify SW of decision. Phone call to Sof[facility] in TCU and they do have a bed available and able to accept pt. SW will await decision from pt . Plan: TCU, pending pt final decision RONEN De La Cruz
--- NOTE | 2022-02-15 16:45 | CASEMGMT ---
Social Work Pt and met and are agreeable to TCU. Nursing now reporting that pt has just tested positive for Covid. TCU cannot accept a pt with covid. Pt continues to be weak and cannot discharge home as he is unable to get up flight of stairs into his home. SW met with pt and explained that although pt was initially accepted, pt cannot go to TCU now due to covid. SEAN will continue to work on SNF placement. RONEN De La Cruz
--- NOTE | 2022-02-15 16:53 | CASEMGMT ---
RN NEGRA NOTE: Intro role of CM to pt's and WALSH form explained re: Observation status for treatment of weakness. Explained hospitalization will be paid per his insurance policy for Outpatient billing and condition will continue to be evaluated for Inpt necessity. Also let know that [facility] sends paper in the billing packet with their phone number if questions arise. Discussed Pharmacy section of WALSH form and self administered medication guideline. verbalizes understanding and does not have further questions. Form signed, copy made and placed in chart, and original given to . Edgardo FRANK RN CM
[2022-02-15 17:08] VITALS: BP 120/69; PULSE 83; RESP 16; TEMP 36.9; O2SAT 96
[2022-02-15 23:15] VITALS: BP 131/73; PULSE 81; RESP 16; TEMP 36.8; O2SAT 95
[2022-02-16] VITALS (7 sets, daily range): BP systolic 118–143; BP diastolic 61–85; PULSE 81–87; RESP 16–18; TEMP 36.9–37.3; O2SAT 95–97
[2022-02-16] MEDS: Menthol/Lanolin/Calamine/Znox 113 GM Tube 1 APPLIC TOPICAL ×3 (06:38→20:49)
[2022-02-16] MEDS: Nystatin Ointment 1 APPLIC TOPICAL (06:39)
[2022-02-16 07:46] LABS: Absolute Lymphocyte Count 0.73 X10^3/uL (0.83-4.51); Basophil# 0.01 X10^3/uL; Basophil% 0.2 % (0-1); Eosinophil# 0.04 X10^3/uL; Eosinophils% 0.9 % (0-5); Hematocrit 37.9 % (40-54); Hemoglobin 13.3 g/dL (13.0-16.5); Lymphocyte # 0.73 X10^3/ul (0.83-4.51); Mean Corp Hgb Conc 35.1 g/dL (32-36); Mean Corpuscular Hgb 34.9 pg (27.0-32.0); Mean Corpuscular Volume 99.5 fL (80-94); Mean Platelet Vol. 9.6 fl (6.2-12.0); Monocyte# 0.75 X10^3/uL; Monocyte% 16.5 % (0-10); NRBC Flagged by Analyzer 0 % (0-5); Neutrophil # 2.96 X10^3/uL (2.7-7.7); Neutrophil % 65.1 % (47-70); Platelet Count 112 K/mm3 (150-450); RBC Distribution Width CV 13.9 % (11.6-14.6); RBC Distribution Width SD 49.7 fl (35.1-43.9); Red Blood Count 3.81 M/mm3 (4.6-6.2); White Blood Count 4.6 K/mm3 (4.4-11.0)
[2022-02-16 08:11] LABS: ALB/GLOB Ratio 0.7 RATIO (0.9-2.4); AST(SGOT) 45 U/L (15-37); Alanine Aminotransfer ALT/SGPT 39 U/L (16-61); Albumin, Serum 3.1 g/dL (3.2-5.0); Alkaline Phosphatase 52 U/L (45-117); Anion Gap 5 (5-15); BUN 25 mg/dL (7-18); BUN/Creat Ratio 19.1 RATIO (10-20); Calcium,Total 8.5 mg/dL (8.5-10.1); Chloride 109 mmol/L (98-107); Creatinine, Serum 1.31 mg/dL (0.70-1.30); EST Glomerular Filtration Rate 57 mL/min (>60); Est Glom Filt Rate - Afr Amer 69 mL/min (>60); Globulin 4.2 g/dL (2.2-4.2); Glucose 106 mg/dL (74-106); Potassium 3.8 mmol/L (3.5-5.1); Protein, Total 7.3 g/dL (6.4-8.2); Sodium Level 138 mmol/L (136-145)
--- NOTE | 2022-02-16 08:14 | PN.HOSP_ITS ---
Subjective Subjective Follow-up on debility, worsening right leg weakness, acute COVID-19 infection: Patient was seen and examined. He feels well. Denies any fever or chills. Not on oxygen. Objective Data Objective Data Vital Signs: Vital Signs Temp Pulse Resp BP Pulse Ox 98.8 F 81 16 123/61 H 96 02/16/22 06:41 02/16/22 06:41 02/16/22 06:41 02/16/22 06:41 02/16/22 06:41 Oxygen Delivery Method Room Air Weight: 117.027 kg Body Mass Index (BMI) 37.7 Intake & Output: Intake and Output for Last 24 Hours 02/14/22 02/15/22 02/16/22 23:59 23:59 23:59 Intake Total 304 / 304 Output Total 300 / 300 350 / 750 1250 / 1250 Balance -300 / -300 -46 / -446 -1250 / -1250 Lab / Micro Data Result Diagrams: 02/16/22 07:34 02/16/22 07:34 Labs: Laboratory Results - last 24 hr 02/15/22 05:20: B-Natriuretic Peptide 19.9 02/15/22 13:24: COVID-19 (LULY) Detected 02/16/22 07:34: WBC 4.6, RBC 3.81 L, Hgb 13.3, Hct 37.9 L, MCV 99.5 H, MCH 34.9 H, MCHC 35.1, RDW Std Deviation 49.7 H, RDW Coeff of Lucien 13.9, Plt Count 112 L, MPV 9.6, Immature Gran % (Auto) 1.300 H, Neut % (Auto) 65.1, Lymph % (Auto) 16.0 L, Mccormick % (Auto) 16.5 H, Eos % (Auto) 0.9, Baso % (Auto) 0.2, Absolute Neuts (auto) 3.0, Absolute Lymphs (auto) 0.73 L, Nucleated RBC % 0 02/16/22 07:34: Sodium 138, Potassium 3.8, Chloride 109 H, Carbon Dioxide 24.0, Anion Gap 5, BUN 25 H, Creatinine 1.31 H, Estim Creat Clear Calc 53.40, Est GFR (MDRD) Af Amer 69, Est GFR (MDRD) Non-Af 57 L, BUN/Creatinine Ratio 19.1, Glucose 106, Calcium 8.5, Total Bilirubin 1.10 H, AST 45 H, ALT 39, Alkaline Phosphatase 52, Total Protein 7.3, Albumin 3.1 L, Globulin 4.2, Albumin/Globulin Ratio 0.7 L Micro: Microbiology 02/14/22 17:17 Urine, Clean Catch Urine Culture - Final Streptococcus agalactiae (B) Radiography Diagnostic Testing: Radiology Impression Lumbar Spine MRI 02/15/22 08:49 IMPRESSION: 1. T11-T12 moderate cord compression, refer to dedicated thoracic imaging. 2. Severe chronic L1-L2, L2-L3 and L3-L4 thecal sac stenosis. 3. Comparable appearance to 6 years prior. Electronically Signed: Tiny Hernández MD at 11:48 EDT , Thoracic Spine MRI 02/15/22 08:49 IMPRESSION: 1. 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 2. 6 years stability since 2016. Electronically Signed: Tiny Hernández MD at 14:59 EDT , Physical Exam Narrative Physical exam: General: Alert, Oriented x3, Cooperative, No apparent distress, HEENT: Atraumatic Oral: Moist Mucosa Neck: Supple Lungs: Diminished to auscultation Cardiovascular: HS I+II, regular, no murmurs Abdomen: Bowel Sounds Present, Soft, Non Tender Extremities: Bilateral leg edema +1 Skin: No rashes, No breakdown Neurological: Bilateral leg weakness, 3/5 in RLE, 4/5 in LLE Psych/Mental Status: Appropriate Assessment & Plan Assessment/Plan (1) Bilateral leg edema: (2) Generalized weakness: PLAN: 1. Acute COVID-19 infection without hypoxia Patient is unvaccinated Will hold off any medications for now 2. 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 Repeat MRI of the thoracic and lumbar spine shows moderate spondylotic cord compression at T8 8?T9 and T11-T12 Severe L1-L2, L2-L3, and L3-L4 thecal sac stenosis Discharge planning ongoing 3. Hypertension, controlled, continue on amlodipine and lisinopril 4. Generalised edema, unclear if he has history of cardiomyopathy Patient is on Lasix at home BNpep is unremarkable, ECHO is pending. 5. DVT PPx- Lovenox SC Charges/Coding Visit Charges Inpatient E&M: 81860 Subs Hosp L2
[2022-02-16] MEDS: Multivitamins,Therapeutic Tablet 1 TABLET PO (10:39)
[2022-02-16] MEDS: Furosemide 20 MG Tablet PO ×2 (10:40→18:06)
[2022-02-16] MEDS: Enoxaparin 40 MG/0.4 ML Syringe SC (10:40)
[2022-02-16] MEDS: amLODIPine 10 MG Tablet PO (10:40)
[2022-02-16] MEDS: Lisinopril 20 MG Tablet PO (10:40)
--- NOTE | 2022-02-16 11:18 | CM.ED ---
SW Note SW called [facility] and spoke to staff and advised that there is no admission staff over the weekend. SW left message for admission staff. SEAN attempted to speak to medical staff to determine if covid positive patient's are accepted and this publications writer was advised that there was no answer from medical staff. SEAN called [facility] and spoke to Diedre. They are accepting + COVID patient's. Fax number [phone] SEAN called [employer]. A supervisor properties will call this publications writer back. SEAN called [facility] in [place] and was advised they have no idea if they are accepting COVID positive patients. SEAN called [facility]. They are not accepting COVID positive patients. SEAN called the [facility] in [place] and they are not accepting COVID positive patients. SEAN called [facility] in [place] and spoke to application systems administrator. They are not accepting COVID positive patients. SEAN spoke to [facility]. Not accepting COVID positive patients. Diandra RANDALL
--- NOTE | 2022-02-16 12:30 | CM.ED ---
Addendum entered by Amparo Malhotra 02/16/22 14:01: SEAN called [facility]. Staff is unsure about if there is a covid unit. SW was on hold for 10 minutes while staff was attempting to transfer to admissions. SEAN had previously left message for Stacy in admission inquiring about covid. amparo RANDALL Original Note: SEAN Note SEAN called patient's and updated her about the status of placement for patient. inquired about [facility]. SEAN called [facility] and spoke to Crystal in TCU. She consulted with supervisor blood and they are not taking COVID positive patients. SEAN updated . inquired about [facility]. SEAN called [facility] and staff consulted with LEAD RAMP AGENT who stated they are NOT accepting COVID positive patients. SEAN updated patient's who stated that she understand that [facility] is the only option at this point regarding placement. Amparo RANDALL
--- NOTE | 2022-02-16 14:07 | CM.ED ---
SEAN note SEAN called Deidre at [facility].She received the referral.She will review and get back to this ticket writer today. Deidre was advised we are looking for placement for Friday. Diandra RANDALL
[2022-02-16] MEDS: Nystatin Powder 15gm Bottle 1 APPLIC TOPICAL ×2 (18:05→20:48)
--- NOTE | 2022-02-16 21:17 | CM.ED ---
SEAN Note SEAN called Deidre at [facility]. They declined patient as they feel that his level of care is higher than what they provide as their average LOS is 7 days. SEAN called patient's , Keerthi and updated her that patient declined at [facility]. SEAN called [facility] and staff nurse stated they thought they were accepting covid positive patients. SEAN faxed referral to [facility]. SEAN sent cortext to Dr. Bagley advising [facility] declined. SEAN spoke to MS Andrew3 charge and updated him that patient was declined at [facility]. Plan: To be determined Diandra RANDALL
[2022-02-17] VITALS (8 sets, daily range): BP systolic 111–119; BP diastolic 59–75; PULSE 71–81; RESP 16–18; TEMP 36.5–36.7; O2SAT 85–99
--- NOTE | 2022-02-17 00:58 | NURSING ---
2L oxygen applied at this time. Patient sats dropping while sleeping to mid 80's
[2022-02-17] MEDS: Menthol/Lanolin/Calamine/Znox 113 GM Tube 1 APPLIC TOPICAL ×3 (04:22→20:41)
[2022-02-17] MEDS: Nystatin Powder 15gm Bottle 1 APPLIC TOPICAL ×3 (04:23→20:41)
[2022-02-17 06:18] LABS: Absolute Lymphocyte Count 0.89 X10^3/uL (0.83-4.51); Absolute Neutrophil Count 1.6 X10^3/uL (2.0-7.7); Basophil# 0.03 X10^3/uL; Basophil% 0.9 % (0-1); Eosinophil# 0.09 X10^3/uL; Eosinophils% 2.7 % (0-5); Hematocrit 36.2 % (40-54); Hemoglobin 12.6 g/dL (13.0-16.5); Lymphocyte # 0.89 X10^3/ul (0.83-4.51); Mean Corp Hgb Conc 34.8 g/dL (32-36); Mean Corpuscular Hgb 34.7 pg (27.0-32.0); Mean Corpuscular Volume 99.7 fL (80-94); Mean Platelet Vol. 9.5 fl (6.2-12.0); Monocyte# 0.64 X10^3/uL; Monocyte% 19.4 % (0-10); NRBC Flagged by Analyzer 0 % (0-5); Neutrophil # 1.58 X10^3/uL (2.7-7.7); Neutrophil % 47.9 % (47-70); Platelet Count 129 K/mm3 (150-450); RBC Distribution Width CV 13.8 % (11.6-14.6); RBC Distribution Width SD 49.9 fl (35.1-43.9); Red Blood Count 3.63 M/mm3 (4.6-6.2); White Blood Count 3.3 K/mm3 (4.4-11.0)
[2022-02-17 06:49] LABS: ALB/GLOB Ratio 0.8 RATIO (0.9-2.4); AST(SGOT) 43 U/L (15-37); Alanine Aminotransfer ALT/SGPT 43 U/L (16-61); Alkaline Phosphatase 48 U/L (45-117); Anion Gap 6 (5-15); BUN 34 mg/dL (7-18); BUN/Creat Ratio 23.8 RATIO (10-20); Calcium,Total 8.1 mg/dL (8.5-10.1); Chloride 107 mmol/L (98-107); Creatinine, Serum 1.43 mg/dL (0.70-1.30); EST Glomerular Filtration Rate 52 mL/min (>60); Est Glom Filt Rate - Afr Amer 63 mL/min (>60); Estimated Creatinine Clearance 48.92 ml/min; Glucose 101 mg/dL (74-106); Potassium 3.9 mmol/L (3.5-5.1); Sodium Level 140 mmol/L (136-145)
--- NOTE | 2022-02-17 07:23 | PCM.PN.HOSP ---
Subjective Subjective Follow-up on debility, worsening right leg weakness, acute COVID-19 infection: Patient seen and examined. He desaturated last night while sleeping to 85%. Required 2 L of oxygen. He has been off oxygen the rest of the day. Patient admits to being told about sleep apnea but he has not followed up with it. Objective Data Objective Data Vital Signs: Vital Signs Temp Pulse Resp BP Pulse Ox 97.9 F 71 18 119/59 L 97 02/17/22 04:24 02/17/22 04:24 02/17/22 04:24 02/17/22 04:24 02/17/22 04:24 Oxygen Flow Rate (L/min) 2 Oxygen Delivery Method Nasal Cannula Weight: 117.5 kg Body Mass Index (BMI) 37.7 Intake & Output: Intake and Output for Last 24 Hours 02/15/22 02/16/22 02/17/22 23:59 23:59 23:59 Intake Total 304 / 304 150 / 150 Output Total 350 / 750 1250 / 1500 600 / 600 Balance -46 / -446 -1250 / -1350 -450 / -450 Lab / Micro Data Result Diagrams: 02/17/22 05:54 02/17/22 05:54 Labs: Laboratory Results - last 24 hr 02/16/22 07:34: WBC 4.6, RBC 3.81 L, Hgb 13.3, Hct 37.9 L, MCV 99.5 H, MCH 34.9 H, MCHC 35.1, RDW Std Deviation 49.7 H, RDW Coeff of Lucien 13.9, Plt Count 112 L, MPV 9.6, Immature Gran % (Auto) 1.300 H, Neut % (Auto) 65.1, Lymph % (Auto) 16.0 L, Tr[place]dale % (Auto) 16.5 H, Eos % (Auto) 0.9, Baso % (Auto) 0.2, Absolute Neuts (auto) 3.0, Absolute Lymphs (auto) 0.73 L, Nucleated RBC % 0 02/16/22 07:34: Sodium 138, Potassium 3.8, Chloride 109 H, Carbon Dioxide 24.0, Anion Gap 5, BUN 25 H, Creatinine 1.31 H, Estim Creat Clear Calc 53.40, Est GFR (MDRD) Af Amer 69, Est GFR (MDRD) Non-Af 57 L, BUN/Creatinine Ratio 19.1, Glucose 106, Calcium 8.5, Total Bilirubin 1.10 H, AST 45 H, ALT 39, Alkaline Phosphatase 52, Total Protein 7.3, Albumin 3.1 L, Globulin 4.2, Albumin/Globulin Ratio 0.7 L 02/17/22 05:54: WBC 3.3 L, RBC 3.63 L, Hgb 12.6 L, Hct 36.2 L, MCV 99.7 H, MCH 34.7 H, MCHC 34.8, RDW Std Deviation 49.9 H, RDW Coeff of Lucien 13.8, Plt Count 129 L, MPV 9.5, Immature Gran % (Auto) 2.100 H, Neut % (Auto) 47.9, Lymph % (Auto) 27.0, [place] % (Auto) 19.4 H, Eos % (Auto) 2.7, Baso % (Auto) 0.9, Absolute Neuts (auto) 1.6 L, Absolute Lymphs (auto) 0.89, Nucleated RBC % 0 02/17/22 05:54: Sodium 140, Potassium 3.9, Chloride 107, Carbon Dioxide 27.0, Anion Gap 6, BUN 34 H, Creatinine 1.43 H, Estim Creat Clear Calc 48.92, Est GFR (MDRD) Af Amer 63, Est GFR (MDRD) Non-Af 52 L, BUN/Creatinine Ratio 23.8 H, Glucose 101, Calcium 8.1 L, Total Bilirubin 0.70, AST 43 H, ALT 43, Alkaline Phosphatase 48, Total Protein 7.0, Albumin 3.0 L, Globulin 4.0, Albumin/Globulin Ratio 0.8 L Micro: Microbiology 02/14/22 17:17 Urine, Clean Catch Urine Culture - Final Streptococcus agalactiae (B) Radiography Diagnostic Testing: Radiology Impression Echocardiogram 02/15/22 08:40 Interpretation Summary The estimated ejection fraction is 65 %. Unable to assess diastolic dysfunction. Mild aortic stenosis. Ordering Physician: Disha Arredondo Referring Physician: Asher Peña M.D. Performed By: Shannon Gaming RDCS Physical Exam Narrative Physical exam: General: Alert, Oriented x3, Cooperative, No apparent distress, HEENT: Atraumatic Oral: Moist Mucosa Neck: Supple Lungs: Diminished to auscultation Cardiovascular: HS I+II, regular, no murmurs Abdomen: Bowel Sounds Present, Soft, Non Tender Extremities: Bilateral leg edema +1 Skin: No rashes, No breakdown Neurological: Bilateral leg weakness, 3/5 in RLE, 4/5 in LLE Psych/Mental Status: Appropriate Assessment & Plan Assessment/Plan (1) Bilateral leg edema: (2) Generalized weakness: PLAN: 1. Acute COVID-19 infection without hypoxia Continue to encourage incentive spirometer Repeat blood work in am 2. Nocturnal hypoxia, patient desaturated last night, needs outpatient follow-up for sleep apnea Patient did well with 2 L oxygen at night 3. 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 Repeat MRI of the thoracic and lumbar spine shows moderate spondylotic cord compression at T8 8?T9 and T11-T12 Severe L1-L2, L2-L3, and L3-L4 thecal sac stenosis Discharge planning ongoing for subacute rehab 4. Hypertension, controlled, continue on amlodipine and lisinopril 5. Generalised edema, unclear if he has history of cardiomyopathy Patient is on Lasix at home BNpep is unremarkable, ECHO is 65% 6. DVT PPx- Lovenox SC Charges/Coding Visit Charges Inpatient E&M: 36726 Subs Hosp L2
[2022-02-17] MEDS: Enoxaparin 40 MG/0.4 ML Syringe SC (10:54)
[2022-02-17] MEDS: Furosemide 20 MG Tablet PO ×2 (10:54→17:36)
[2022-02-17] MEDS: dexAMETHasone 4 MG Tablet 6 MG PO (10:55)
[2022-02-17] MEDS: Multivitamins,Therapeutic Tablet 1 TABLET PO (10:55)
[2022-02-17] MEDS: amLODIPine 10 MG Tablet PO (10:55)
[2022-02-17] MEDS: Lisinopril 20 MG Tablet PO (11:05)
[2022-02-18 03:09] VITALS: BP 138/73; PULSE 67; RESP 18; TEMP 36.3; O2SAT 96
[2022-02-18] MEDS: Nystatin Powder 15gm Bottle 1 APPLIC TOPICAL ×3 (05:40→20:46)
[2022-02-18] MEDS: Menthol/Lanolin/Calamine/Znox 113 GM Tube 1 APPLIC TOPICAL ×3 (05:40→20:46)
[2022-02-18 06:24] LABS: Absolute Lymphocyte Count 0.75 X10^3/uL (0.83-4.51); Absolute Neutrophil Count 2.9 X10^3/uL (2.0-7.7); Basophil# 0.01 X10^3/uL; Basophil% 0.3 % (0-1); Hematocrit 36.5 % (40-54); Lymphocyte # 0.75 X10^3/ul (0.83-4.51); Lymphocyte % 19.4 % (19-41); Mean Corp Hgb Conc 35.6 g/dL (32-36); Mean Corpuscular Hgb 34.6 pg (27.0-32.0); Mean Corpuscular Volume 97.1 fL (80-94); Mean Platelet Vol. 9.3 fl (6.2-12.0); Monocyte# 0.17 X10^3/uL; Monocyte% 4.4 % (0-10); NRBC Flagged by Analyzer 0 % (0-5); Neutrophil # 2.88 X10^3/uL (2.7-7.7); Neutrophil % 74.6 % (47-70); Platelet Count 159 K/mm3 (150-450); RBC Distribution Width CV 13.2 % (11.6-14.6); RBC Distribution Width SD 46.4 fl (35.1-43.9); Red Blood Count 3.76 M/mm3 (4.6-6.2); White Blood Count 3.9 K/mm3 (4.4-11.0)
[2022-02-18 06:50] LABS: ALB/GLOB Ratio 0.8 RATIO (0.9-2.4); AST(SGOT) 38 U/L (15-37); Alanine Aminotransfer ALT/SGPT 46 U/L (16-61); Albumin, Serum 3.2 g/dL (3.2-5.0); Alkaline Phosphatase 50 U/L (45-117); Anion Gap 3 (5-15); BUN 33 mg/dL (7-18); BUN/Creat Ratio 25.8 RATIO (10-20); Calcium,Total 8.8 mg/dL (8.5-10.1); Chloride 108 mmol/L (98-107); Creatinine, Serum 1.28 mg/dL (0.70-1.30); EST Glomerular Filtration Rate 59 mL/min (>60); Est Glom Filt Rate - Afr Amer 71 mL/min (>60); Estimated Creatinine Clearance 54.65 ml/min; Globulin 4.2 g/dL (2.2-4.2); Glucose 120 mg/dL (74-106); Potassium 4.5 mmol/L (3.5-5.1); Protein, Total 7.4 g/dL (6.4-8.2); Sodium Level 139 mmol/L (136-145)
[2022-02-18 09:49] VITALS: BP 123/64; PULSE 76; RESP 20; TEMP 36.4; O2SAT 99
[2022-02-18] MEDS: Enoxaparin 40 MG/0.4 ML Syringe SC (09:52)
[2022-02-18] MEDS: Furosemide 20 MG Tablet PO ×2 (09:52→17:16)
[2022-02-18] MEDS: Lisinopril 20 MG Tablet PO (09:52)
[2022-02-18] MEDS: Multivitamins,Therapeutic Tablet 1 TABLET PO (09:52)
[2022-02-18] MEDS: amLODIPine 10 MG Tablet PO (09:52)
--- NOTE | 2022-02-18 10:18 | PN.HOSP_ITS ---
Subjective Subjective Patient seeen and examined. He had no active complaints and had an uneventful night. he is on 2L of oxygen. Review of systems is otherwise negative. HE was on 2L of oxygen at time of review. Per nursing, he barely requires any oxygen during the day but wears 2L of oxygen at night due to sleep apnea. Objective Data Objective Data Vital Signs: Vital Signs Temp Pulse Resp BP Pulse Ox 97.6 F L 76 20 H 123/64 H 99 02/18/22 09:49 02/18/22 09:49 02/18/22 09:49 02/18/22 09:49 02/18/22 09:49 Oxygen Flow Rate (L/min) 2 Oxygen Delivery Method Room Air Weight: 259 lb 7.745 oz Body Mass Index (BMI) 37.7 Intake & Output: Intake and Output for Last 24 Hours 02/16/22 02/17/22 02/18/22 23:59 23:59 23:59 Intake Total 760 / 760 Output Total 1250 / 1500 700 / 700 450 / 450 Balance -1250 / -1350 60 / 60 -450 / -450 Lab / Micro Data Result Diagrams: 02/18/22 06:10 02/18/22 06:10 Labs: Laboratory Results - last 24 hr 02/18/22 06:10: WBC 3.9 L, RBC 3.76 L, Hgb 13.0, Hct 36.5 L, MCV 97.1 H, MCH 34.6 H, MCHC 35.6, RDW Std Deviation 46.4 H, RDW Coeff of Lucien 13.2, Plt Count 159, MPV 9.3, Immature Gran % (Auto) 1.300 H, Neut % (Auto) 74.6 H, Lymph % (Auto) 19.4, Woods % (Auto) 4.4, Eos % (Auto) 0.0, Baso % (Auto) 0.3, Absolute Neuts (auto) 2.9, Absolute Lymphs (auto) 0.75 L, Nucleated RBC % 0 02/18/22 06:10: Sodium 139, Potassium 4.5, Chloride 108 H, Carbon Dioxide 28.0, Anion Gap 3 L, BUN 33 H, Creatinine 1.28, Estim Creat Clear Calc 54.65, Est GFR (MDRD) Af Amer 71, Est GFR (MDRD) Non-Af 59 L, BUN/Creatinine Ratio 25.8 H, Glucose 120 H, Calcium 8.8, Total Bilirubin 0.40, AST 38 H, ALT 46, Alkaline Phosphatase 50, Total Protein 7.4, Albumin 3.2, Globulin 4.2, Albumin/Globulin Ratio 0.8 L Micro: Microbiology 02/14/22 15:55 Blood Culture (Wb) - Left Hand Blood Culture - Preliminary No growth in 48 hours. 02/14/22 15:50 Blood Culture (Wb) - Anticubital Right Blood Culture - Pre liminary No growth in 48 hours. 02/14/22 17:17 Urine, Clean Catch Urine Culture - Final Streptococcus agalactiae (B) Physical Exam Const alert, oriented x3 and no apparent distress Exam Limitations: no limitations HEENT head/scalp atraumatic and moist oral mucous membranes Head and Scalp: normocephalic Eyes PERRL, EOMs intact bilaterally and conjunctivae normal Resp Resp Narrative: mildly diminished breath sounds bibasally, no wheezes or crackles. On 2L of oxygen by nasal canula. Cardio regular rate, regular rhythm, S1 normal heart sound, S2 normal heart sound and no murmurs GI normal to inspection, nondistended, normoactive bowel sounds, soft to palpation, non-tender and non-distended Extremity normal to inspection, full ROM and no clubbing, cyanosis or edema Peripheral Pulses: Yes pulses 2+ throughout Skin no rashes or lesions noted Neuro oriented x3, CN's II-XII intact bilaterally and moves all extremities Sensorium / Orientation: awake and alert Psych affect normal Assessment & Plan Assessment/Plan (1) COVID: (2) Bilateral leg edema: (3) Debility: PLAN: #Acute hypoxic respiratory insufficiency due to covid 19 infection * on 2L of oxygen * titrate oxygen to maintain sats >90% * he also has sleep apnea, and this is contributing to his nocturnal hypoxia. * breathing treatment with bronchodilators * will start on decadron 6mg daily to complete a 10 day course. * not vaccinated * #Debility due to spinal stenosis * MRI of the thoracic and lumbar spine showed moderate spondylotic cord compression at T8-T9 and T11-T12 adn severe spinal stenosis at L1-2, L2-3 and L3-4 * PT/OT on board. * for dc to subacute rehab once medically stable * #Hypertension;on amlodipine and lisinopril DVT prophylaxis: lovenox Disposition; awaiting placement Charges/Coding Visit Charges Inpatient E&M: 51031 Subs Hosp L2
--- NOTE | 2022-02-18 10:22 | CASEMGMT ---
Addendum entered by Whitney Cooper 02/18/22 13:06: SEAN emailed Stacy at [facility] to check on referral. SEAN waiting for determination from [facility]. Original Note: Social Work Note SEAN emailed Stacy at [facility] regarding taking COVID+ patients. Stacy states they are still accepting COVID+ patients, willing to review referral. Referral was sent to [facility] over the weekend. Plan: [facility] pending acceptance Whitney Cooper MSW, FIBER GLASS WORKER
--- NOTE | 2022-02-18 13:30 | CASEMGMT ---
Addendum entered by Whitney Cooper 02/18/22 16:03: Pt updated this worker that pt can return home with [facility]. RN CM updated. Original Note: Social Work Note SW received email from [facility] stating they can accept pt. SW placed a call to pt's Keerthi and left message. SW placed a call to pt's room. SW introduced self and role at [facility]. SW updated pt that [facility] is able to accept pt. Pt states he doesn't want to go to a SNF. SW asked pt how he is going to manage at home and pt states the same way I was before. SW informed pt that it was stated that it was not safe for pt to return home and pt again states he will be returning home at discharge. SW informed pt that PT/OT will need to work with pt today and make recommendations and if pt is still assist of two he needs to consider going to SNF. SW also informed pt that this worker called his and left message. Pt states that he was going to go to the unit here at [facility] for states you guys don't take COVID. SW informed pt that that is accurate, TCU doens't take COVID pt's but this worker found a SNF that will and that is [facility] in [place]. Pt again states he wants to return home. PT/OT to work with pt to make continued recommendations. Plan: TBD. Pt is stating he would like to return home now at discharge. Whitney Cooper TRAVELIFT OPERATOR, FINANCIAL REP
[2022-02-18] MEDS: dexAMETHasone 4 MG Tablet 6 MG PO (13:57)
[2022-02-18 14:08] VITALS: BP 133/70; PULSE 86; RESP 20; TEMP 36.5; O2SAT 97
[2022-02-18 15:15] VITALS: O2SAT 98
[2022-02-18 15:48] VITALS: O2SAT 98
[2022-02-18 20:43] VITALS: BP 106/66; PULSE 79; RESP 18; TEMP 36.7; O2SAT 96
[2022-02-19] VITALS (8 sets, daily range): BP systolic 116–122; BP diastolic 62–69; PULSE 68–83; RESP 18–22; TEMP 36.4–37.1; O2SAT 91–97
[2022-02-19 06:07] LABS: Absolute Lymphocyte Count 0.92 X10^3/uL (0.83-4.51); Absolute Neutrophil Count 4.4 X10^3/uL (2.0-7.7); Basophil# 0.02 X10^3/uL; Basophil% 0.4 % (0-1); Hematocrit 35.9 % (40-54); Hemoglobin 12.3 g/dL (13.0-16.5); Lymphocyte # 0.92 X10^3/ul (0.83-4.51); Lymphocyte % 16.4 % (19-41); Mean Corp Hgb Conc 34.3 g/dL (32-36); Mean Corpuscular Hgb 34.2 pg (27.0-32.0); Mean Corpuscular Volume 99.7 fL (80-94); Mean Platelet Vol. 9.5 fl (6.2-12.0); Monocyte# 0.13 X10^3/uL; Monocyte% 2.3 % (0-10); NRBC Flagged by Analyzer 0 % (0-5); Neutrophil # 4.44 X10^3/uL (2.7-7.7); Neutrophil % 78.9 % (47-70); Platelet Count 191 K/mm3 (150-450); RBC Distribution Width CV 13.3 % (11.6-14.6); RBC Distribution Width SD 48.3 fl (35.1-43.9); White Blood Count 5.6 K/mm3 (4.4-11.0)
[2022-02-19] MEDS: Menthol/Lanolin/Calamine/Znox 113 GM Tube 1 APPLIC TOPICAL ×2 (06:18→13:57)
[2022-02-19] MEDS: Nystatin Powder 15gm Bottle 1 APPLIC TOPICAL ×2 (06:18→13:53)
[2022-02-19 06:39] LABS: ALB/GLOB Ratio 0.8 RATIO (0.9-2.4); AST(SGOT) 35 U/L (15-37); Alanine Aminotransfer ALT/SGPT 51 U/L (16-61); Albumin, Serum 3.1 g/dL (3.2-5.0); Alkaline Phosphatase 48 U/L (45-117); Anion Gap 7 (5-15); BUN 34 mg/dL (7-18); BUN/Creat Ratio 27.9 RATIO (10-20); Calcium,Total 8.7 mg/dL (8.5-10.1); Chloride 108 mmol/L (98-107); Creatinine, Serum 1.22 mg/dL (0.70-1.30); EST Glomerular Filtration Rate 62 mL/min (>60); Est Glom Filt Rate - Afr Amer 75 mL/min (>60); Estimated Creatinine Clearance 57.34 ml/min; Globulin 3.8 g/dL (2.2-4.2); Glucose 128 mg/dL (74-106); Potassium 4.1 mmol/L (3.5-5.1); Protein, Total 6.9 g/dL (6.4-8.2); Sodium Level 141 mmol/L (136-145)
[2022-02-19] MEDS: Lisinopril 20 MG Tablet PO (08:37)
[2022-02-19] MEDS: Furosemide 20 MG Tablet PO (08:38)
[2022-02-19] MEDS: dexAMETHasone 4 MG Tablet 6 MG PO (08:38)
[2022-02-19] MEDS: amLODIPine 10 MG Tablet PO (08:38)
[2022-02-19] MEDS: Multivitamins,Therapeutic Tablet 1 TABLET PO (08:39)
[2022-02-19] MEDS: Enoxaparin 40 MG/0.4 ML Syringe SC (08:39)
--- NOTE | 2022-02-19 10:15 | CASEMGMT ---
Addendum entered by Hollie Hoang 02/19/22 12:02: Received tc from [facility] accepting pt for SOC on . Addendum entered by Hollie Hoang 02/19/22 11:48: Pt does not qualify for home O2. Addendum entered by Hollie Hoang 02/19/22 11:07: TC to Elvia at [facility], referral made, awaiting acceptance. Original Note: RN CM in to pt room. Pt at bedside. Pt states he does want to go home, pt is agreeable to C. Patient was provided a list of C providers including quality and resource use data and consistent with the patient?s preferred geographic region, medical needs, and insurance network. The patient?s preferred provider is [facility]. Discussed expectations of C. Discussed DME should pt need O2, pt/ chose [facility]. Pt does have a pox at home. Pt/ deny further needs.
--- NOTE | 2022-02-19 14:35 | PCM.DC.SUM ---
Providers Date of Admission: 02/17/22 Primary Care Physician: Dr. Brenden Peña, DO Consultations 02/14/22 23:00 Consult: Onc/Wound/professor of geography Routine Comment: Reason For Visit: WEAKNESS Diagnosis Discharge Diagnosis (1) COVID: Status: Acute Code(s): U07.1 - COVID-19 (2) Bilateral leg edema: Status: Acute Code(s): R60.0 - Localized edema (3) Debility: Status: Acute Code(s): R53.81 - Other malaise Medications at Discharge Home Medications multivitamin 1 tab PO DAILY 10/05/19 amlodipine-benazepril 1 cap PO DAILY 02/14/22 furosemide 20 mg PO DAILY 02/14/22 cefdinir 300 mg PO BID #10 cap 02/19/22 Hospital Course Operations None Procedures None Summary of Care Provided Minutes Spent on Discharge: 45 Hospital Course: Patient is a 71 y/o male with a PMH as outlined who was admitted via the ED on 02/14/2022 with a complaint of weakness. He fell twice on the day of admission and was unable to get up by himself. He denied hitting his head. Chest x-ray was unremarkable urinalysis was also negative for any evidence of infection. He was admitted to managed for debility due to mechanical falls. 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 Patient subsequently required oxygen during the admission and COVID test done was positive. Patient has not been vaccinated for COVID. Required 2 L of oxygen intermittently but subsequently weaned off of it. He worked with physical therapy and plan was to initially discharge him to an acute rehab facility. Patient however subsequently decided to go home and per evaluation visit with physical therapy, it was recommended that he could go home with home health. Was also weaned off of oxygen and walking pulse ox done on day of discharge showed that he did not require any oxygen. He was discharged home on 02/19/2022. He is follow-up with his primary care doctor to have outpatient physical therapy.Though urinalysis was negative for UTI, urine culture was done which grew Strep Agalactiae sensitive to ceftriaxone. He was therefore discharged on a 5 day course of PO cefdinir 300mg bid. Patient seen and examined prior to discharge. He felt much better and had no active complaints. He had an uneventful night. He was on room air. Review of systems otherwise negative. Labs and vitals reviewed. Medication reviewed and reconciled. Physical Exam Const alert, oriented x3 and no apparent distress General Appearance: cooperative and comfortable Orientation / Consciousness: awake Exam Limitations: no limitations HEENT normocephalic, head/scalp atraumatic, hearing grossly normal bilaterally and moist oral mucous membranes Eyes PERRL, EOMs intact bilaterally and conjunctivae normal Neck no lymphadenopathy, supple and no JVD Resp normal respiratory effort, no retractions, no use of accessory muscles and clear to auscultation bilaterally Resp Narrative: mildly diminished breath sounds bibasally, no wheezes or crackles. On room air Auscultation: Negative for crackles, rales, rhonchi or wheezes Cardio regular rate, regular rhythm, S1 normal heart sound, S2 normal heart sound and no murmurs GI normal to inspection, nondistended, normoactive bowel sounds, soft to palpation, non-tender and non-distended; Negative for hepatosplenomegaly Extremity normal to inspection, full ROM and no clubbing, cyanosis or edema General Extremity: edema; Negative for clubbing or cyanosis Skin no rashes or lesions noted Neuro oriented x3, CN's II-XII intact bilaterally, moves all extremities, no focal motor deficits and no sensory deficits noted Sensorium / Orientation: awake and alert Psych affect normal Appearance: appropriate Weight / BMI Weight Weight: 260 lb 9.382 oz Body Mass Index (BMI) 37.7 ABG / Lab / Microbiology Data Result Diagrams: 02/19/22 04:29 02/19/22 04:29 Laboratory: Laboratory Results - last 24 hr 02/19/22 04:29: WBC 5.6, RBC 3.60 L, Hgb 12.3 L, Hct 35.9 L, MCV 99.7 H, MCH 34.2 H, MCHC 34.3, RDW Std Deviation 48.3 H, RDW Coeff of Lucien 13.3, Plt Count 191, MPV 9.5, Immature Gran % (Auto) 2.000 H, Neut % (Auto) 78.9 H, Lymph % (Auto) 16.4 L, Warren % (Auto) 2.3, Eos % (Auto) 0.0, Baso % (Auto) 0.4, Absolute Neuts (auto) 4.4, Absolute Lymphs (auto) 0.92, Nucleated RBC % 0 02/19/22 04:29: Sodium 141, Potassium 4.1, Chloride 108 H, Carbon Dioxide 26.0, Anion Gap 7, BUN 34 H, Creatinine 1.22, Estim Creat Clear Calc 57.34, Est GFR (MDRD) Af Amer 75, Est GFR (MDRD) Non-Af 62, BUN/Creatinine Ratio 27.9 H, Glucose 128 H, Calcium 8.7, Total Bilirubin 0.50, AST 35, ALT 51, Alkaline Phosphatase 48, Total Protein 6.9, Albumin 3.1 L, Globulin 3.8, Albumin/Globulin Ratio 0.8 L Microbiology: Microbiology 02/14/22 15:55 Blood Culture (Wb) - Left Hand Blood Culture - Preliminary No growth in 48 hours. 02/14/22 15:50 Blood Culture (Wb) - Anticubital Right Blood Culture - Preliminary No growth in 48 hours. 02/14/22 17:17 Urine, Clean Catch Urine Culture - Final Streptococcus agalactiae (B) D/C Instructions Discharge Diet: Low fat / Low cholesterol Discharge Activity: Return to Normal Activity Weight Bearing Status: Weight bearing as tolerated Call your doctor if you observe: Fever of 101 or Higher, Shortness of breath, Dizziness, Swelling in the ankles, Chest pain and Increased palpitations (irregular heartbeat) Meaningful Use Info Meaningful Use Diagnoses (Choose all that apply): None applicable Discharge Plan Admission Admit Date/Time: 02/17/22 08:49 Attending Provider: Bria Valdez Primary Care Provider: Brenden Peña Instructions Additional Instructions / Restrictions: remain in self isolation till 02/25/2021 to complete a 10 day course of self isolation for covid. Discharge Orders/Prescriptions Prescriptions: New cefdinir 300 mg capsule 300 mg PO BID Qty: 10 RF: 0 Continued multivitamin Tablet 1 tab PO DAILY RF: 0 furosemide 20 mg tablet 20 mg PO DAILY RF: 0 amlodipine-benazepril 10-20 mg capsule 1 cap PO DAILY RF: 0 Referrals / Follow Up: Brenden Peña DO [Primary Care Provider] - Disposition Disposition (needs filled in before D/C Order can be placed): Home Health Service Charges/Coding Visit Charges Inpatient E&M: 48443 Dis[facility] Hosp
== END 2022-02-19 15:58 | disposition home health service (06) | DRG 178 ==
LOC: ED 18:32 → MS3 19:04
PROVIDERS: Internal Medicine; Admitting Provider Family Medicine; Emergency Provider Emergency Medicine; PCP Family Medicine; Visit Provider Student in an Organized Health Care Education/Training Program
DX: U07.1 COVID-19 (principal); M47.14 Other spondylosis with myelopathy, thoracic region; G47.34 Idiopathic sleep related nonobstructive alveolar hypoventilation; E78.00 Pure hypercholesterolemia, unspecified; I10 Essential (primary) hypertension; M48.061 Spinal stenosis, lumbar region without neurogenic claudication; M19.90 Unspecified osteoarthritis, unspecified site; W19.XXXA Unspecified fall, initial encounter; B95.1 Streptococcus, group B, as the cause of diseases classified elsewhere; E66.9 Obesity, unspecified; R53.81 Other malaise; R60.0 Localized edema; Z87.442 Personal history of urinary calculi; Z79.899 Other long term (current) drug therapy; Z91.81 History of falling; Y93.9 Activity, unspecified; Y92.9 Unspecified place or not applicable; Z68.37 Body mass index [BMI] 37.0-37.9, adult; R82.71 Bacteriuria
CPT/HCPCS: 36415; 71045; 72146; 72148; 80048; 80053; 81001; 83605; 83735; 83880; 84100; 84484; 85025; 87040; 87077; 87086; 87088; 87186; 87635; 93005; 93306; 94762; 97110; 97116; 97163; 97166; 97530; 97535; 99251; 99285; J7050; Q9957; A4216; C8929; G0463; J0248; J1940; U0003; U0005

== ENCOUNTER → 2023-03-27 | Outpatient (CLI) | payer MEDICARE, OTHER, SELFPAY ==
[2023-03-27 12:15] LABS: Absolute Neutrophil Count 2.2 X10^3/uL (2.0-7.7); Basophil# 0.01 X10^3/uL; Basophil% 0.3 % (0-1); Eosinophil# 0.06 X10^3/uL; Eosinophils% 1.6 % (0-5); Hematocrit 40.6 % (40-54); Hemoglobin 14.2 g/dL (13.0-16.5); Lymphocyte % 31.8 % (19-41); Mean Corpuscular Hgb 34.1 pg (27.0-32.0); Mean Corpuscular Volume 97.6 fL (80-94); Mean Platelet Vol. 9.6 fl (6.2-12.0); Monocyte# 0.28 X10^3/uL; Monocyte% 7.4 % (0-10); NRBC Flagged by Analyzer 0 % (0-5); Neutrophil # 2.16 X10^3/uL (2.7-7.7); Neutrophil % 57.3 % (47-70); Platelet Count 133 K/mm3 (150-450); RBC Distribution Width CV 13.6 % (11.6-14.6); RBC Distribution Width SD 47.5 fl (35.1-43.9); Red Blood Count 4.16 M/mm3 (4.6-6.2); White Blood Count 3.8 K/mm3 (4.4-11.0)
[2023-03-27 12:49] LABS: ALB/GLOB Ratio 0.8 RATIO (0.9-2.4); AST(SGOT) 26 U/L (15-37); Alanine Aminotransfer ALT/SGPT 30 U/L (16-61); Albumin, Serum 3.4 g/dL (3.2-5.0); Alkaline Phosphatase 60 U/L (45-117); Anion Gap 5 (5-15); BUN 12 mg/dL (7-18); BUN/Creat Ratio 10.6 RATIO (10-20); Calcium,Total 9.1 mg/dL (8.5-10.1); Chloride 110 mmol/L (98-107); Creatinine, Serum 1.13 mg/dL (0.70-1.30); EST Glomerular Filtration Rate 68 mL/min (>60); Est Glom Filt Rate - Afr Amer 82 mL/min (>60); Globulin 4.1 g/dL (2.2-4.2); Glucose 97 mg/dL (74-106); PSA,Total- Diagnostic 0.32 ng/mL (0.0-4.0); Potassium 4.2 mmol/L (3.5-5.1); Protein, Total 7.5 g/dL (6.4-8.2); Sodium Level 141 mmol/L (136-145)
== END | disposition home or self-care (01) ==
LOC: BIMLAB 11:04
PROVIDERS: PCP Family Medicine; Referring Provider Family Medicine; Visit Provider Family Medicine
DX: I10 Essential (primary) hypertension (principal); R35.0 Frequency of micturition
CPT/HCPCS: 36415; 80053; 84153; 85025

== ENCOUNTER → 2023-05-22 | Outpatient (CLI) | payer MEDICARE, OTHER, SELFPAY ==
--- NOTE | 2023-05-22 12:37 | MRI_ITS ---
STUDY: MR Spine Lumbar W/O Contrast 05/22/2023 5:21 PM REASON FOR EXAM: Male, 72 years old. Back pain pain, bilateral leg weakness TECHNIQUE: MR Spine Lumbar W/O Contrast Standardized fat and water weighted pulse sequences were obtained. COMPARISON: 02.15.22 FINDINGS: T12-L1: Normal endplates. Normal disc height, hydration and morphology. Normal bilateral facet joints. Normal central canal and bilateral lateral recesses. Normal bilateral intervertebral neural foramina. Normal lumbar lordosis. There is no substantial scoliosis. Normal conus medullaris that terminates at the L1. L1-2: Loss of intervertebral disc height. There is endplate spondylosis of the vertebral body. There is bilateral ligamentum flavum thickening. Central disc herniation. There is bilateral facet arthropathy. Severe spinal stenosis. There is likely bilateral recess stenosis with compression of the descending bilateral L2 nerve root. L2-3: Loss of intervertebral disc height. There is endplate spondylosis of the vertebral body. There is bilateral ligamentum flavum thickening. Central disc herniation. There is bilateral facet arthropathy. Severe spinal stenosis. There is likely bilateral recess stenosis with compression of the descending bilateral L3 nerve root. L3-4: Loss of intervertebral disc height. There is endplate spondylosis of the vertebral body. There is bilateral ligamentum flavum thickening. Left paracentral disc herniation. There is bilateral facet arthropathy. Severe spinal stenosis. There is likely left lateral recess stenosis with compression of the descending left L4 nerve root. L4-5: Loss of intervertebral disc height. There is endplate spondylosis of the vertebral body. There is bilateral ligamentum flavum thickening. Broad-based disc bulge. There is bilateral facet arthropathy. Moderate spinal stenosis. L5-S1: There is bilateral ligamentum flavum thickening. Loss of intervertebral disc height. There is endplate spondylosis of the vertebral body. There is bilateral facet arthropathy. There are paracentral disc herniation. Impression upon the anterior thecal sac. No spinal stenosis. Normal visualized sacral ala. Normal visualized paraspinous soft tissue structures. MRI/Spine Lumbar (Routine) IMPRESSION: Multilevel degenerative changes, as described above. Overall unchanged findings of the lumbar spine. Multilevel disc herniations as described above. Multilevel spinal stenosis as noted above. Electronically Signed: Tuan James MD at 17:27 EDT ,
== END | disposition home or self-care (01) ==
LOC: MRI 12:22
PROVIDERS: PCP Family Medicine; Referring Provider Orthopaedic Surgery; Visit Provider Orthopaedic Surgery
DX: M48.061 Spinal stenosis, lumbar region without neurogenic claudication (principal)
CPT/HCPCS: 72148

== ENCOUNTER 2023-08-19 07:50 | Observation (INO) | payer MEDICARE, OTHER, SELFPAY ==
--- NOTE | 2023-08-05 13:19 | EKG12_ITS ---
Test Reason : PRE OP Blood Pressure : / mmHG Vent. Rate : 078 BPM Atrial Rate : 078 BPM P-R Int : 144 ms QRS Dur : 078 ms QT Int : 390 ms P-R-T Axes : 052 014 045 degrees QTc Int : 444 ms Normal sinus rhythm Low voltage QRS Borderline ECG Confirmed by CARROLL ESTEVEZ, JENNY ([id number]), pictures editor MILLER KENYON ([id number]) on 08/12/2023 7:09:14 AM Referred By: Barron Vigil Confirmed By:JENNY HODGES MD
[2023-08-05 14:16] LABS: Absolute Lymphocyte Count 1.26 X10^3/uL (0.83-4.51); Absolute Neutrophil Count 2.6 X10^3/uL (2.0-7.7); Basophil# 0.02 X10^3/uL; Basophil% 0.5 % (0-1); Eosinophil# 0.12 X10^3/uL; Eosinophils% 2.7 % (0-5); Hematocrit 38.5 % (40-54); Hemoglobin 13.5 g/dL (13.0-16.5); Lymphocyte # 1.26 X10^3/ul (0.83-4.51); Lymphocyte % 28.5 % (19-41); Mean Corp Hgb Conc 35.1 g/dL (32-36); Mean Corpuscular Hgb 34.1 pg (27.0-32.0); Mean Corpuscular Volume 97.2 fL (80-94); Mean Platelet Vol. 9.3 fl (6.2-12.0); Monocyte# 0.41 X10^3/uL; Monocyte% 9.3 % (0-10); NRBC Flagged by Analyzer 0 % (0-5); Neutrophil # 2.56 X10^3/uL (2.7-7.7); Neutrophil % 57.9 % (47-70); Platelet Count 142 K/mm3 (150-450); RBC Distribution Width CV 13.3 % (11.6-14.6); Red Blood Count 3.96 M/mm3 (4.6-6.2); White Blood Count 4.4 K/mm3 (4.4-11.0)
[2023-08-05 14:38] LABS: Anion Gap 4 (5-15); BUN 17 mg/dL (7-18); BUN/Creat Ratio 13.4 RATIO (10-20); Chloride 111 mmol/L (98-107); Creatinine, Serum 1.27 mg/dL (0.70-1.30); EST Glomerular Filtration Rate 59 mL/min (>60); Est Glom Filt Rate - Afr Amer 72 mL/min (>60); Glucose 112 mg/dL (74-106); Magnesium 2.2 mg/dL (1.6-2.6); Potassium 3.9 mmol/L (3.5-5.1); Sodium Level 143 mmol/L (136-145)
[2023-08-05 15:38] LABS: HIV - WCH Non-Reactive (Nonreactive); Hepatitis B Surface Antibody Non-Reactive; Hepatitis C Antibody Non-Reactive (Nonreactive)
[2023-08-07 06:09] LABS: Hepatitis A AB, Total Positive (Negative)
--- NOTE | 2023-08-18 11:17 | HP.PCM_ITS ---
History and Physical MR#: [id number] Acct: [id number] Name: ZACHERY BERNABE Rep #: [id number] : 1950 Provider: Dr. Barron Vigil DO Age/Sex: 72/M Location: [facility] [place] Status: Signed Intake Vital Signs 03/27/2310:18 05/15/2309:08 Height 5 ft 10 in 5 ft 10 in Weight: 256 lb 0.6 oz 256 lb 8 oz BMI 36.7 36.8 BP 132/70 H Blood Pressure Location Lt brachial Position Sitting Respiration 20 H Pulse 75 Pulse Source Monitor Temp 97.6 F L Temp Source Temporal Pulse Oximetry (%) 98 Oxygen Delivery Method room air Intake Visit Reasons: LUMBAR SPINE Allergies No Known Allergies Allergy (Verified 05/15/23 09:09) Medications multivitamin 1 tab PO DAILY SUPPLEMENT 10/05/19 [History Confirmed 05/15/23] handicap placard #1 ea 11/21/22 [Rx Confirmed 05/15/23] benazepril 20 mg tablet 20 mg PO DAILY #90 tabs 03/27/23 [Rx Confirmed 05/15/23] furosemide 20 mg tablet 20 mg PO DAILY FLUID #90 tabs 03/27/23 [Rx Confirmed 05/15/23] PFSH Medical History Arthritis Hearing problem High cholesterol Hypertension Kidney stones Spinal stenosis of lumbar region Surgical History History of nasal surgery history stapedectomy Family History Father Heart disease HypertensionMother Diabetes Social History Smoking Status: Never smoker alcohol intake: current alcohol intake frequency: holidays/special occasions only substance use type: does not use what type of physical activity do you participate in: none HPI LUMBAR SPINE Details: Parts of this documentation were recorded by a scribe, this documentation accurately reflects the service provided and the decisions made by me, Dr. Barron Vigil DO 05/15/23 0908. ZACHERY BERNABE is a 72 year old M here today NEW patient for his lower back. He does get pain when he stands up too long but that is the only time that he has pain. He is here because he can hardly move because of his back. He has been told that he has spinal stenosis. He does use a rollator walker to ambulate. States that he has had issues over 10 years ago. He does have an MRI in the system of his lumbar spine and Thoracic spine from 02/15/22. He did do some PT in the past but it wasn't helpful. Denies home care assistant. He had x-rays several years ago and was told he would need surgery. Mr. Bernabe is a pleasant gentleman 72 years old who presents in the company of his and the company of his son Zachery Mehta. He has been using the roller walker to ambulate for years. He does not really have all that much pain he just gets pain if he stands for more than 5 or 10 minutes or walks 2 or 300 yards. He gets relief if he sits down. He does not really get any pain down his legs or numbness or weakness in his legs from the history that he gave me. He is not the best at medical history however. On examination he has reasonable motor strength of the major muscle groups of both lower extremities however he has weak hip flexors on the right side. He is areflexic on both sides. He has no long tract signs. Clonus is absent and Babinski's are downgoing. I reviewed an old MRI scan 15 months old that demonstrates that he has stenosis at L3-4 L2-3 and even at L1-2. He has degeneration of the other discs also. I explained to the family that he should have had a surgery done probably 10 years ago and now it would be much more difficulties much more deconditioned and I am not sure that he will gain anything from it. Nonetheless we are ordering a new MRI scan of the lumbar spine to get us up-to-date on what his low back looks like now. I will see him after the MRI scan and make further recommendations. Coding Level of Care Code Off vis,new,level 3 Diagnoses Spinal stenosis of lumbar region at multiple levels M48.061 Time Spent (min) 30 Assessment and Plan Assessment and Plan (1) Spinal stenosis of lumbar region at multiple levels: Status: Acute Orders:
[2023-08-19] VITALS (13 sets, daily range): BP systolic 97–156; BP diastolic 55–100; PULSE 79–112; RESP 16–18; TEMP 36.1–36.8; O2SAT 95–100; BMI 39.2
[2023-08-19 06:11] LABS: Bedside Glucose 167 mg/dL (74-106)
--- NOTE | 2023-08-19 06:30 | RAD_ITS ---
STUDY: X-RAY - LUMBAR SPINE REASON FOR EXAM: Male, 72 years old. LAMINECTOMY L2-3, L3-4 TECHNIQUE: Lateral view(s) of the lumbar spine were obtained. COMPARISON: None FINDINGS: The localization instrument is seen posterior to the L2-L3 disc space level. RAD/Spine 1 View Any Level IMPRESSION: The localization instrument is seen posterior to the L2-L3 disc space level. Electronically Signed: Silvestre Miles MD at 12:29 EDT ,
[2023-08-19] MEDS: Lactated Ringers 1,000 ML 15 ML IV (06:31)
[2023-08-19] MEDS: Acetaminophen 500 MG Tablet 1000 MG PO ×3 (06:32→21:48)
[2023-08-19] MEDS: Magnesium 1 GM over 15 mins IV (06:34)
[2023-08-19] MEDS: Cefazolin 2 GM in 0.9% Normal Saline (100mL Bag) 100 ML IV (08:07)
[2023-08-19] MEDS: THROMBIN (RECOMBINANT) 20,000 UNIT VIAL 20000 UNIT TOPICAL (09:12)
--- NOTE | 2023-08-19 11:38 | OP.PCM_ITS ---
Report of Operation Description of Surgical Findings:: Preoperative diagnosis: Severe spinal stenosis L3-4 and L2-3 Postoperative diagnosis: Same Procedure: #1 laminectomy decompression L3-4 CPT code 06081 #2 laminectomy decompression L2-3 DPG code 70955/51 Surgeon: Dr. Vigil Bus Repair Supervisor: Tavia Miner NP Anesthesia: General endotracheal by [facility] EBL: 150 cc Drains: None Complications: None Procedure: Patient was taken to the OR where he was placed under general en dotracheal anesthesia. A Orourke catheter was inserted. Neuro monitoring placed her leads on the patient. The patient was then moved onto the Isaiah frame in the prone position. After appropriate positioning with care to protect his bony prominences his genitalia his brachial plexus on both sides, his ulnar nerves of both sides and his face and neck the back was then prepped and draped standard fashion. I then made a longitudinal incision centered over L2-3 and L3-4. Subcutaneous tissues were incised length of skin incision initially elevated. Paravertebral muscles off the lamina thought to be the lamina of L2 and intraoperative x-ray was taken with a marker in place that confirmed that we were indeed at L2-3. This was then marked the end of the incision down to L3-4. That was marked also. I then elevated the remaining paravertebral muscles off the lamina of 2 the lamina of 3 the facets on both sides. Then that same thing on the opposite side elevating the paravertebral muscles off the lamina of 2 the lamina of 3 and over the facets. The super slide retractors were then put in place with 3 inch blades. We then started the procedure of cleaning up the soft tissues fatty tissue etc. that was in her way. Using cautery I was able to identify both lamina of 3 and the lamina of 2 on both sides including exposure of the pars. Then used double-action rongeurs to remove the spinous process of L3. Double-action rongeurs were used and it was also used to thin down the lamina in the midline. I then released the ligamentum flavum off the underside of the lamina of L3 the laminectomy was then carried out on both sides with 45 degree Kerrison rongeurs both 3 and 4 mm. Once I went far enough up to get past the ligamentum flavum I then split the ligamentum flavum in the midline I then used curettes to release it off the top of the lamina of L4. Using 45 degree Kerrison rongeurs and then restarted removal of the ligamentum flavum all the way out lateralward and also open the lateral recess doing medial facetectomies on both sides. This completely decompressed the right side as I was working from the left. And did most of the left side also but it would be addressed from the opposite side of the table. I then used double-action rongeurs to remove the spinous process of L2 again the double-action rongeur was used to thin down the lamina. The curettes were then used to release the ligamentum flavum and again I did the laminectomy of L2 on both sides. I split the ligamentum flavum in the midline released it off the top of L3 and began its removal with 45 degree Kerrison rongeurs. I went all the way out lateralward removing it all the way out to the lateral recess and opening the lateral recess by doing a small medial facetectomies on each side. It was taken not to destabilize the level. This was done we try to get bleeding well controlled which we were able to do in both the epidural spaces and the surrounding soft tissues.. Note that every 10 to 50 minutes in the course of the case we thoroughly irrigated with copious amounts of sterile saline to prevent infection. We had good hemostasis at the end of the case. We felt that we did not need a drain. We placed amnionic membrane directly over both laminotomy sites. Foam was placed over the top of that. I then closed the lumbar fascia using [id number] suture with #1 Vicryl followed by closure of subcutaneous tissues in layers with 0 Vicryl and 2-0 Vicryl in interrupted fashion. Skin clips were used on the skin. We then up put sterile dressings on top of the wound. He was then recovered in the OR he was moved to his hospital bed and taken to recovery in satisfactory condition. This is the end of operative summary on Judy Bernaeb. This is Dr. Vigil dictating.
--- NOTE | 2023-08-19 12:12 | ED.RN ---
Unable to access strength and sensation, pt still trying to awake from anesthesia.
[2023-08-19 13:17] LABS: Bedside Glucose 125 mg/dL (74-106)
[2023-08-19] MEDS: Lactated Ringers 1,000 ML 100 ML IV ×2 (14:11→16:00)
--- NOTE | 2023-08-19 14:33 | PCM.PN.HOSP ---
Reason for Visit Reason for Visit: Diagnoses Encounter for other preprocedural examination (08/19/23) Subjective Subjective Patient status post recent laminectomy decompression L2-3 and L3-[address] Vigil. He currently notes that he is having some discomfort in his right shoulder primarily secondary to pulling and tugging on the bed but this is a chronic component and also some discomfort at the incisional sites on his lower back rating it initially 6 out of 10 but following recent Tylenol now down to 4 out of 10 and continues to improve. He denies any paresthesias or focal weaknesses. Patient denies fevers, chills, nausea, emesis, abdominal pain, chest pain or dyspnea. Objective Data Objective Data Vital Signs: Vital Signs Temp Pulse Resp BP Pulse Ox O2 Del Method O2 Flow Rate 97.2 F L 83 18 106/65 96 Room Air 4 08/19/23 13:26 08/19/23 13:26 08/19/23 13:26 08/19/23 13:26 08/19/23 14:05 08/19/23 14:05 08/19/23 13:15 Oxygen Flow Rate (L/min) 4 Oxygen Delivery Method Room Air Weight: 257 lb 9.6 oz Body Mass Index (BMI) 39.2 Intake & Output: Intake and Output for Last 24 Hours 08/17/23 08/18/23 08/19/23 23:59 23:59 23:59 Intake Total 1326.5 / 1326.5 Output Total 850 / 850 Balance 476.5 / 476.5 Lab / Micro Data 08/05/23 13:39 08/05/23 13:39 Labs: Laboratory Results - last 24 hr 08/19/23 05:52: POC Glucose 167 H 08/19/23 12:59: POC Glucose 125 H Micro: Microbiology 08/05/23 13:39 Swab (Method) Nasal Screen MRSA/MSSA - Final Radiography Diagnostic Testing: Radiology Impression Spine X-Ray 08/19/23 06:30 IMPRESSION: The localization instrument is seen posterior to the L2-L3 disc space level. Electronically Signed: Sivlestre Miles MD at 12:29 EDT , Physical Exam Narrative Physical Examination: General: Awake, alert, oriented x 3 and cooperative, seated upright in MS bed in no apparent distress. Skin: Normal color, normal turgor, no icterus, no cyanosis except recent OR with lumbar incision with dressing in place with no drainage. HEENT: AT/NC, EOMI, PERRLA, MMM, notably thickened neck. Lungs: Diminished, greater bases, distant, proper effort, no rales, ronchi or wheezing. Heart: Regular rate and rhythm; no gallop, rub audible. Abdomen: Soft, obese, NTTP, distant normal BS, no obvious distention. Extremities: No cyanosis, no clubbing, mild peripheral edema, chronic. Neurological: Patient awake, alert, oriented x 3, cognitive function intact; pupils equally reactive to light and accommodation, cranial nerves II-XII grossly normal, moving all 4 extremities although limited given recent MR with lumbar back surgery, no focal deficits, strength accordingly moderately to severely globally decreased secondary to acute presentation. Psychiatric: Affect appears normal, no acute evidence of depressive or anxiety feelings. Assessment & Plan Assessment/Plan (1) Spinal stenosis of lumbar region at multiple levels: PLAN: Plan The patient is a 72 y/o M w/ PMHx: Obesity, BPPV, HTN, HLD, Chronic hearing deficits, OA, Chronic BL LE lymphedema, Chronic severe lumbar back pain with radiculopathy who presents to the [facility] on 08/19/23 for planned intervention with laminectomy decompression L2-3 and L3-[address] Vigil. #1. Severe lumbar back pain with radiculopathy: Failed conservative therapies and treatments, admitted per Dr. Vigil, status post laminectomy decompression L2-3 and 3-4, post-operative pain management, bowel regimen, DVT Prophylaxis, PT/OT/CM per Orthopedic surgery discretion. #2. Hypertension: Continue home regimen including benazepril, Lasix, PRN hydralazine. #3. Hyperlipidemia: Not on statin therapy, defer to outpatient. #4. Obesity: Weight loss and lifestyle changes encouraged. #5. Chronic bilateral lower extremity lymphedema: May consider snug Ghanshyam wraps if necessary, maintain on home lasix regimen. #6. BPPV: Noted history, currently not symptomatic, if necessary may always add meclizine or low-dose Valium. #7. High risk MARY: Patient is unaware of any snoring or gasping for air presentation while he is sleeping but given thickened chest and neck certainly high risk candidate, we will continue to monitor while inpatient. #8. DVT prophylaxis: SCDs, chemoprophylaxis per surgery discretion given recent LR as noted. Charges/Coding Visit Charges Inpatient E&M: 01524 [facility] L3
[2023-08-19] MEDS: Furosemide 20 MG Tablet PO (14:35)
[2023-08-19] MEDS: Cefazolin 1 GM/50 ML BAG IV ×2 (16:00→23:35)
[2023-08-20 02:47] VITALS: BP 142/71; PULSE 72; RESP 16; TEMP 36.6; O2SAT 97
[2023-08-20] MEDS: Lactated Ringers 1,000 ML 100 ML IV (02:51)
[2023-08-20] MEDS: Acetaminophen 500 MG Tablet 1000 MG PO ×3 (06:11→21:57)
[2023-08-20 08:16] VITALS: O2SAT 95
[2023-08-20] MEDS: Ensure Surgery 237 ML LIQUID PO ×2 (08:42→13:36)
[2023-08-20] MEDS: Furosemide 20 MG Tablet PO (08:42)
[2023-08-20] MEDS: Lisinopril 20 MG Tablet PO (08:43)
[2023-08-20 08:45] VITALS: BP 133/66; PULSE 78; RESP 18; TEMP 36.5; O2SAT 98
--- NOTE | 2023-08-20 10:25 | CASEMGMT ---
Addendum entered by Marta Marcos 08/20/23 15:40: Therapy notes from this AM reviewed. Per therapy, pt requiring mod assist w/ambulating, is unsteady/unsafe w/gate, is at risk of falling, and is unsafe to return home. Addendum entered by Marta Marcos 08/20/23 15:35: 11:45: RN CM to room. @ bedside. Discussed discharge planning. states she feels SNF would be safest for pt @ discharge, verifying that she is unable to assist pt @ home and she also states their family is unable to come stay w/them to assist him. She was made aware of [facility] [place] In-[place] requirements for SNF benefits and questions answered. She states they are unable to afford to pay for pt to go to a SNF, but she voices concern of patient falling if he returns home. She states, if pt would qualify for [facility], then she feels he does need to go to a SNF. Pt states he is agreeable to this as well. Pt and both state, if pt unable to go to a SNF, then they would be interested in [facility]. SEAN Callahan, made aware of above. Original Note: RN?CM?BONDACTOR MACHINE OPERATOR?CM?to room to meet with patient for initial transition planning/care coordination?assessment.?RN?CM?introduced self and role at [facility].? Pt voices understanding and consents to?assessment?at this time.? Pt sitting on edge of bed in no distress at this time.? Pt is A/O at this time and answers all questions appropriately.?? Care providers, pharmacy, and demographics verified/updated at this time. PCP: Dr Brenden Peña. Specialists:catrina Coelho Preferred Pharmacy: [facility] Insurance: [facility], MMO Prescription Benefit:?Yes Living Will/HPOA:?Pt does not currently have LW/HCPOA and declines info at this time.? Pt made aware that he can contact as an out-pt and make appt in the future if he decides he would like to talk with someone about this or would like to utilize [facility] social work for advanced directive completion.?? LNOK: . Pt has 7 living children. Living Arrangements: Lives w/ and 17-yr-old son in 2-story home w/basement. Pt has 8 + 4-5 steps to enter home. There is a W/C lift present, but it is broken and pt states it will cost $1,100 to fix it and he cannot afford this. Pt able to dress himself, but sponge-baths pt and does all home mgnt tasks. Family assist pt getting up the steps by lifting his legs up on the steps to get into the home. Financial concerns: Pt states it takes all of his monthly income and 's SS income to pay their bills and sometimes they do not have enough money to buy groceries. He states they have never looked into seeing if he qualifies for [facility], as far as he knows. Transportation:? DME: ?States has the following DME:?shower chair, lift chair, rails, rollator ?Pt states no need for further DME at this time.? HHC/SNF: No hx of SNF. Had [facility]HC in 2021. Therapy notes reviewed from yesterday and SNF is recommended. Pt max assist to transfer and only able to ambulate 4 ft and rt knee buckling throughout. Per therapy, pt only able to ambulate 20 ft w/rollator @ his baseline. Discussed discharge planning and made aware of therapy's recommendations for SNF. Pt made aware of [facility]'s [place] In-patient rule for SNF benefits. Pt states he is unable to afford to pay for a SNF. He also states his is unable to assist him @ home and states his children work and are unable to come stay w/pt to assist w/his care while he is recovering. MOISE OMER informed him therapy would work w/him today again and discharge planning would be discussed further once therapy has worked w/him. He voices understanding. PLAN:??TBD, pending progress w/therapy and financial concerns. Edgardo GAGNONN?RN?NEGRA
--- NOTE | 2023-08-20 10:32 | CASEMGMT ---
Met with patient to complete WALSH form. WALSH form explained to patient who voiced understanding and signed form. Original form placed in pt?s chart and copy provided to patient. Michelle Cortez, Discharge Planning Asst.
[2023-08-20] MEDS: oxyCODONE 5 MG Tablet PO (13:36)
--- NOTE | 2023-08-20 13:36 | PCM.PN.ORT ---
Subjective Subjective Postop day #1. Patient was seen on rounds he was in the company of his . He is already been up and relates that when he did get up with a walker that his leg pain was completely gone he does not have any leg pain anymore. States that his back pain is not bad especially if he does not move. Overall he is very pleased as I am also as to how he is doing at this point. Because of his severe deconditioning that he had prior to surgery I think we will keep him in the hospital 1 more day. He has enough help at home that I doubt that he needs rehab. His rehab will consist of him walking and as he gets stronger he will be walking further and further. He already has a walker at home. I will see him again tomorrow and consider his discharge for home. Objective Data Objective Data Vital Signs: Vital Signs Temp Pulse Resp BP Pulse Ox O2 Del Method O2 Flow Rate 97.7 F L 78 18 133/66 H 98 Room Air 4 08/20/23 08:45 08/20/23 08:45 08/20/23 08:45 08/20/23 08:45 08/20/23 08:45 08/20/23 08:45 08/19/23 13:15 Oxygen Flow Rate (L/min) 4 Oxygen Delivery Method Room Air Weight: 257 lb 9.586 oz Body Mass Index (BMI) 39.2 Intake & Output: Intake and Output for Last 24 Hours 08/18/23 08/19/23 08/20/23 23:59 23:59 23:59 Intake Total 1558.17 / 1558.17 3258.33 / 3258.33 Output Total 975 / 975 1150 / 1150 Balance 583.17 / 583.17 2108.33 / 2108.33 Lab / Micro Data 08/05/23 13:39 08/05/23 13:39 Micro: Microbiology 08/05/23 13:39 Swab (Method) Nasal Screen MRSA/MSSA - Final
[2023-08-20 14:05] VITALS: BMI 39.2
[2023-08-20 15:00] VITALS: BP 119/83; PULSE 86; RESP 18; TEMP 37.1; O2SAT 98
--- NOTE | 2023-08-20 15:10 | PCM.PN.HOSP ---
Reason for Visit Reason for Visit: Diagnoses Spinal stenosis, lumbar region without neurogenic claudication (08/19/23) Encounter for other preprocedural examination (08/19/23) Subjective Subjective Patient seen at bedside this morning, present. Patient sitting at the edge of the bed, conversing normally, no acute distress. Patient currently denies any low back pain or discomfort. However, he states that he continues to feel quite weak. Has not seen PT or OT yet today. On further discussion with patient and his , they are concerned about him going home on discharge given his weakness at baseline but is now worsened secondary to his recent procedure. Patient otherwise denies any fevers or chills overnight. Denies any chest pain, shortness of breath, lightheadedness or dizziness. No other acute concerns currently. Objective Data Objective Data Vital Signs: Vital Signs Temp Pulse Resp BP Pulse Ox O2 Del Method O2 Flow Rate 97.7 F L 78 18 133/66 H 98 Room Air 4 08/20/23 08:45 08/20/23 08:45 08/20/23 08:45 08/20/23 08:45 08/20/23 08:45 08/20/23 08:45 08/19/23 13:15 Oxygen Flow Rate (L/min) 4 Oxygen Delivery Method Room Air Weight: 116.845 kg Body Mass Index (BMI) 39.2 Intake & Output: Intake and Output for Last 24 Hours 08/18/23 08/19/23 08/20/23 23:59 23:59 23:59 Intake Total 1558.17 / 1558.17 3258.33 / 3258.33 Output Total 975 / 975 1150 / 1150 Balance 583.17 / 583.17 2108.33 / 2108.33 Lab / Micro Data 08/05/23 13:39 08/05/23 13:39 Micro: Microbiology 08/05/23 13:39 Swab (Method) Nasal Screen MRSA/MSSA - Final Physical Exam Const alert, oriented x3 and no apparent distress Constitutional Narrative: Pleasant elderly male, obese, appears mildly fatigued, sitting at edge of bed, conversing normally, no acute distress. General Appearance: cooperative and comfortable HEENT normocephalic, head/scalp atraumatic, hearing grossly normal bilaterally, nasal mucous membranes and turbinates normal and moist oral mucous membranes Eyes PERRL, EOMs intact bilaterally and conjunctivae normal Neck full ROM, no lymphadenopathy and supple Lymph Lymphatic: no lymphadenopathy noted Chest inspection of chest normal Resp normal respiratory effort, normal air movement, no use of accessory muscles and clear to auscultation bilaterally Cardio regular rate, regular rhythm, no murmurs and peripheral pulses 2+ throughout GI normal to inspection, nondistended, normoactive bowel sounds, soft to palpation, non-tender and non-distended Back/Spine Back/Spine Narrative: No significant L-spine tenderness to palpation. Extremity normal to inspection, full ROM and no pedal edema Skin no rashes or lesions noted Neuro moves all extremities and no focal motor deficits Psych mental status grossly normal Assessment & Plan Assessment/Plan (1) Spinal stenosis of lumbar region at multiple levels: PLAN: Plan Patient is a 72-year-old male with history of obesity, hypertension, chronic lower extremity lymphedema and severe lumbar pain with radiculopathy who presented to [facility] on 08/19/2023 for planned procedure. Medicine consulted for medical management postoperatively. 1. Severe lumbar back pain with radiculopathy S/p laminectomy with decompression of L2-3 and L3-[address] Vigil on 08/19. Patient tolerated procedure well. L-spine x-ray postoperatively shows that the localization instrument is seen posterior to the L2-L3 disc space level, no other concerns. ? Orthopedic surgery following. PT/OT/case management following. Plans to monitor today with likely discharge home tomorrow. Continue pain control as needed. Chronic medical conditions: ? Hypertension: Continue home Benzapril, Lasix, hydralazine as needed. ? Chronic lower extremity lymphedema: Continue home Lasix, consider starting Ghanshyam wraps if necessary. ? Obesity: BMI 39 on admit. Weight loss and lifestyle changes encouraged. DVT prophylaxis: SCDs CODE STATUS: Full code, unverified Expected disposition: Home, 1 to 2 days Total clinical time spent by myself addressing the patient's medical issues, reviewing all the data, and collaborating with patient's care team: 25 minutes. Charges/Coding Visit Charges Inpatient E&M: 64588 Subs Hosp L1
[2023-08-20 15:57] VITALS: BP 119/83; PULSE 86; RESP 18; TEMP 37.1; O2SAT 98
--- NOTE | 2023-08-20 16:57 | CASEMGMT ---
Social Work RNCM and therapy reporting that pt may benefit from short term stay in SNF. Pt stating he does not have finances to pay for SNF and insurance will not cover. Per RNCM, pt also reporting finances are tight and some food insecurity is indicated. Pt has 15 steps into home and a chair lift that has been broken for over a year as they are unable to afford to have it repaired. Email referral made to [facility] to assess for Medicaid eligibility. SEAN will provide resources for [facility] to assist with stair lift repair, [employer] including prepared meal and food resources, [employer] info, and home delivered meal information. Referral made to [facility] in [facility] In[facility] Re[facility] to assess if pt would qualify for rehabilitation in this unit. SEAN will await determination and then meet with pt and to discuss options. RONEN De La Cruz
--- NOTE | 2023-08-20 17:40 | CASEMGMT ---
MOISE OMER NOTE: MOISE OMER spoke w/Dr Vigil re: reporting limited availability of someone in the home that can assist pt w/ambulation. states that she is not physically able to assist pt much and son that lives in the home is involved in sports and is not home often. Discussed possible option of [facility] and Dr Vigil states he is agreeable to this if they are able to accept pt. Edgardo FRANK RN, CM
[2023-08-20 21:51] VITALS: BP 124/64; PULSE 80; RESP 16; TEMP 36.6; O2SAT 96
[2023-08-20] MEDS: Senna Tablet 2 TABLET PO (21:55)
[2023-08-21 04:04] VITALS: BP 147/71; PULSE 73; RESP 16; TEMP 36.6; O2SAT 98
[2023-08-21] MEDS: Acetaminophen 500 MG Tablet 1000 MG PO ×2 (05:30→14:05)
[2023-08-21 07:17] VITALS: O2SAT 95
[2023-08-21] MEDS: Lisinopril 20 MG Tablet PO (09:16)
[2023-08-21] MEDS: Ensure Surgery 237 ML LIQUID PO (09:16)
[2023-08-21] MEDS: Furosemide 20 MG Tablet PO (09:16)
[2023-08-21] MEDS: Senna Tablet 2 TABLET PO (09:20)
[2023-08-21] MEDS: oxyCODONE 5 MG Tablet PO (09:20)
[2023-08-21] MEDS: Tamsulosin HCl 0.4 MG Capsule PO (09:21)
[2023-08-21 10:00] VITALS: BP 144/83; PULSE 73; RESP 16; TEMP 36.6; O2SAT 98
--- NOTE | 2023-08-21 10:14 | CASEMGMT ---
Social Work SW spoke with [facility] in [facility] and they are unable to accept pt as they do not feel he will be able to complete 3 hours of therapy a day. SEAN spoke with Susan from [facility]. Pt is over income for to qualify for [facility] Medicaid. Phone call to pt [place] and updated that [facility] cannot accept and pt is not eligible to go to SNF under Medicaid. denies finances to pay privately for [facility]. Pt feels she can take pt home. Pt's son will assist in transporting pt home and getting him up the steps. states once pt is in the home everything in on one floor and she will be able to provide needed care. SW left community resources in pt room for stair lift repair and food resources. SW explained resources to pt's who confirms she will get them when she arrives at the hospital later today. Plan: Home with family RONEN De La Cruz
--- NOTE | 2023-08-21 13:49 | DCINST_ITS ---
Discharge Instructions Activity May shower in (days): 5 May resume sexual activity in: 6-8 weeks Lifting Restrictions: 10# Dressing / Incision Remove Dressing in: 4 days Follow Up Care Test Results: Test results from this visit will be discussed in further detail at your follow- up appointment, if applicable. Discharge Plan Admission Admit Date/Time: 08/19/23 07:50 Attending Provider: Barron Vigil Primary Care Provider: Brenden Peña Consulting Providers: Jocelyn Tyson; Mayco Encarnacion Discharge Orders/Prescriptions Prescriptions: No Action multivitamin Tablet 1 tab PO DAILY furosemide 20 mg tablet 20 mg PO DAILY Qty: 90 3RF benazepril 20 mg tablet 20 mg PO DAILY Qty: 90 0RF (DME) handicap placard See Rx Instructions .ROUTE .MEDSUPPLY Qty: 1 0RF Rx Instructions: 5 Years duration Other Ambulatory Orders: 12 Lead EKG (Routine) Timeframe: 20230805 Location: None Selected Ordered By: Dr. Barron Vigil Referrals / Follow Up: Brenden Peña, [Primary Care Provider] - Disposition Disposition (needs filled in before D/C Order can be placed): Home, Self Care
--- NOTE | 2023-08-21 13:50 | PCM.DC.SUM ---
Providers Date of Admission: 08/19/23 Primary Care Physician: Dr. Brenden Peña, DO Attending Physician: This is a discharge summary on Judy Morganyer. This gentleman was admitted 2 days ago with severe spinal stenosis at L2-3 and L3-4. She underwent surgery on Friday 2 days ago and tolerated the procedure well. Now he reports that his leg pain is completely resolved. Unfortunately we could not get him into rehab because he was put in under observation. Had he been put in under inpatient he could have rehab. This is another one of the silly and ridiculous rules that Medicare has. Fact is this gentleman could use a rehab because he has been basically sitting for 10 years. These Medicare rules are detrimental to health care. I will allow him to go home today. He will have at least home health there. He has some support because he does have a 17-year-old son that lives at home however he placed 3 different sports and he has a job. Nonetheless I will allow him to go home we will hope for the best. I will see him again at his the predetermined appointment here at my office. Consultations 08/19/23 11:49 Consult: Hospitalist Routine Consulting Provider: Jocelyn Tyson Reason for Consult: Medical Management EMERGENT Consult: No MD Notified: Yes Date Notified: 08/19/23 Time Notified: 14:09 Method of Notification: Text Reason For Visit: Decompression laminectomy L3-4 and Diagnosis Discharge Diagnosis (1) Spinal stenosis of lumbar region at multiple levels: Status: Acute Code(s): M48.061 - Spinal stenosis, lumbar region without neurogenic claudication Medications at Discharge Home Medications multivitamin 1 tab PO DAILY SUPPLEMENT 10/05/19 handicap placard #1 ea 11/21/22 benazepril 20 mg tablet 20 mg PO DAILY #90 tabs 03/27/23 furosemide 20 mg tablet 20 mg PO DAILY FLUID #90 tabs 03/27/23 Weight / BMI Weight Weight: 257 lb 9.586 oz Body Mass Index (BMI) 39.2 ABG / Lab / Microbiology Data 08/05/23 13:39 08/05/23 13:39 Microbiology: Microbiology 08/05/23 13:39 Swab (Method) Nasal Screen MRSA/MSSA - Final D/C Instructions May shower in (days): 5 May resume sexual activity in: 6-8 weeks Meaningful Use Info Meaningful Use Diagnoses (Choose all that apply): None applicable Discharge Plan Admission Admit Date/Time: 08/19/23 07:50 Attending Provider: Barron Vigil Primary Care Provider: Brenden Peña Consulting Providers: Jocelyn Tyson; Mayco Encarnacion Discharge Orders/Prescriptions Prescriptions: No Action multivitamin Tablet 1 tab PO DAILY furosemide 20 mg tablet 20 mg PO DAILY Qty: 90 3RF benazepril 20 mg tablet 20 mg PO DAILY Qty: 90 0RF (DME) handicap placard See Rx Instructions .ROUTE .MEDSUPPLY Qty: 1 0RF Rx Instructions: 5 Years duration Other Ambulatory Orders: 12 Lead EKG (Routine) Timeframe: 20230805 Location: None Selected Ordered By: Dr. Barron Vigil Referrals / Follow Up: Brenden Peña DO [Primary Care Provider] - Disposition Disposition (needs filled in before D/C Order can be placed): Home, Self Care
--- NOTE | 2023-08-21 15:01 | PCM.PN.HOSP ---
Reason for Visit Reason for Visit: Diagnoses Spinal stenosis, lumbar region without neurogenic claudication (08/19/23) Encounter for other preprocedural examination (08/19/23) Subjective Subjective Patient seen at bedside this morning. Laying comfortably in bed, conversing normally, no acute distress. Does appear moderately fatigued this morning. States he has not been able to get out of bed yet this morning, is waiting to work with therapy. He reports mild low back pain, similar to yesterday. He denies any pain down his legs. Otherwise denies any fevers or chills. Denies any other acute pain or discomfort. No other acute concerns. Objective Data Objective Data Vital Signs: Vital Signs Temp Pulse Resp BP Pulse Ox O2 Del Method O2 Flow Rate 97.8 F 73 16 144/83 H 98 Room Air 4 08/21/23 10:00 08/21/23 10:00 08/21/23 10:00 08/21/23 10:00 08/21/23 10:00 08/21/23 10:00 08/19/23 13:15 Oxygen Flow Rate (L/min) 4 Oxygen Delivery Method Room Air Weight: 116.845 kg Body Mass Index (BMI) 39.2 Intake & Output: Intake and Output for Last 24 Hours 08/19/23 08/20/23 08/21/23 23:59 23:59 23:59 Intake Total 1558.17 / 1558.17 3258.33 / 3258.33 900 / 900 Output Total 975 / 975 1150 / 1150 1300 / 1300 Balance 583.17 / 583.17 2108.33 / 2108.33 -400 / -400 Lab / Micro Data 08/05/23 13:39 08/05/23 13:39 Micro: Microbiology 08/05/23 13:39 Swab (Method) Nasal Screen MRSA/MSSA - Final Physical Exam Const alert, oriented x3 and no apparent distress Constitutional Narrative: Pleasant elderly male, obese, appears mildly fatigued, laying in bed, conversing normally, no acute distress. General Appearance: cooperative and comfortable HEENT normocephalic, head/scalp atraumatic, hearing grossly normal bilaterally, nasal mucous membranes and turbinates normal and moist oral mucous membranes Eyes PERRL, EOMs intact bilaterally and conjunctivae normal Neck full ROM, no lymphadenopathy and supple Lymph Lymphatic: no lymphadenopathy noted Chest inspection of chest normal Resp normal respiratory effort, normal air movement, no use of accessory muscles and clear to auscultation bilaterally Cardio regular rate, regular rhythm, no murmurs and peripheral pulses 2+ throughout GI normal to inspection, nondistended, normoactive bowel sounds, soft to palpation, non-tender and non-distended Back/Spine Back/Spine Narrative: No significant L-spine tenderness to palpation. Extremity normal to inspection, full ROM and no pedal edema Skin no rashes or lesions noted Neuro moves all extremities and no focal motor deficits Psych mental status grossly normal Assessment & Plan Assessment/Plan (1) Spinal stenosis of lumbar region at multiple levels: PLAN: Plan Patient is a 72-year-old male with history of obesity, hypertension, chronic lower extremity lymphedema and severe lumbar pain with radiculopathy who presented to [facility] for planned procedure. Medicine consulted for medical management postoperatively. 1. Severe lumbar back pain with radiculopathy S/p laminectomy with decompression of L2-3 and L3-[address] Vigil on 08/19. Patient tolerated procedure well. L-spine x-ray postoperatively shows that the localization instrument is seen posterior to the L2-L3 disc space level, no other concerns. ? Orthopedic surgery following. PT/OT/case management following. Unfortunately, patient will have to be discharged home as he was admitted under observation status, otherwise would be a good candidate for rehab on discharge. He was not a candidate for inpatient rehab notably. Continue pain control as needed. Chronic medical conditions: ? Hypertension: Continue home Benzapril, Lasix, hydralazine as needed. ? Chronic lower extremity lymphedema: Continue home Lasix, consider starting Ghanshyam wraps if necessary. ? Obesity: BMI 39 on admit. Weight loss and lifestyle changes encouraged. DVT prophylaxis: SCDs CODE STATUS: Full code, unverified Expected disposition: Home, today Total clinical time spent by myself addressing the patient's medical issues, reviewing all the data, and collaborating with patient's care team: 25 minutes. Charges/Coding Visit Charges Inpatient E&M: 88235 Subs Hosp L1
--- NOTE | 2023-08-21 15:43 | CASEMGMT ---
Addendum entered by Hollie Hoang 08/21/23 16:43: Pt was accepted by [facility] for SN. Spoke with Parish who states he is confirming therapy. He states he will call in the morning to make aware if therapy is able to see pt. This information placed on dc instructions and pt and aware. They deny further needs. Addendum entered by Hollie Hoang 08/21/23 16:18: [facility] decline referral. Addendum entered by Hollie Hoang 08/21/23 16:08: [facility] declined referral. Referral sent to L[facility] and [facility] at this time via [employer]. Original Note: Pt. has order for discharge. MOISE OMER in to pt. room to discuss pt. C needs/preferences. Pt's is also at the bedside. Pt. is agreeable to [facility] (SN, PT/OT/SW). Patient was provided a list of [facility] providers including quality and resource use data and consistent with the patient?s preferred geographic region, medical needs, and insurance network were provided from the [facility]. Pt's choices are #1 [facility], #2 [facility], #3 [facility]. Pt. and his state they plan to take pt. home in her car and their son will be able to assist with getting pt. up the stairs and into their home. They do ask if a cot would be covered for transport home and I informed them we cannot guarantee that it will be covered; they decide to stay with their original plan for transport home. MOISE OMER made tevin Gan at [facility] and made referral. Will await decision to accept.
[2023-08-21 17:07] VITALS: BP 149/78; PULSE 70; RESP 18; TEMP 37; O2SAT 98
--- NOTE | 2023-08-22 16:16 | CASEMGMT ---
Spoke with Mary Ellen [facility] [place] who states that they do not have therapy to see pt but will send SN. MING restaurant assistant manager to notify pt. [facility] to reach out to schedule SOC visit with pt.
== END 2023-08-21 17:35 | disposition home health service (06) ==
LOC: SDC 12:42 → MS3 12:42
PROVIDERS: Admitting Provider Orthopaedic Surgery; PCP Family Medicine; Referring Provider Orthopaedic Surgery; Visit Provider Orthopaedic Surgery
PROC: (CPT 63030; principal; 2023-08-19 07:00)
DX: M48.061 Spinal stenosis, lumbar region without neurogenic claudication (principal); E78.00 Pure hypercholesterolemia, unspecified; I10 Essential (primary) hypertension; M19.90 Unspecified osteoarthritis, unspecified site; Z79.899 Other long term (current) drug therapy; E66.9 Obesity, unspecified; Z68.39 Body mass index [BMI] 39.0-39.9, adult; I89.0 Lymphedema, not elsewhere classified; M54.16 Radiculopathy, lumbar region
CPT/HCPCS: 63047; 63048; 00630; 36415; 72020; 80048; 82962; 83735; 85025; 86703; 86706; 86708; 86803; 87081; 93005; 94668; 96361; 96365; 96366; 97116; 97162; 97166; 97530; 97535; 97802; 99221; J7120; G0378; J2405; J3475

== ENCOUNTER 2023-09-24 08:00 | Outpatient (RCR) | payer MEDICARE, OTHER, SELFPAY ==
[2023-09-17 08:11] VITALS: BP 155/76; PULSE 73; RESP 18; TEMP 36.2
--- NOTE | 2023-09-17 11:30 | PCM.WC.HP ---
History of Present Illness Date of Service: 09/17/23 Chief Complaint: Follow-up on a coccyx wound History of Wound: This is a 72-year-old white male who is pretty much at fresh postop of lower back surgery and has been poorly ambulating and only ambulating with a walker sits in a chair most of the day has developed shearing ulcer on his coccyx area. Son brought him in and will be helping with providing care his is currently in the hospital having her knees done so they will We will apply for home health care also. [facility] Medical History Arthritis Hearing problem High cholesterol History of echocardiogram History of edema Hypertension Kidney stones Loss of hearing No natural teeth Non-smoker Spinal stenosis of lumbar region Walker as ambulation aid Wears glasses Home Medications multivitamin 1 tab PO DAILY SUPPLEMENT 10/05/19 [History Last Taken 08/18/23] handicap placard #1 ea 11/21/22 [Rx Last Taken Unknown] furosemide 20 mg tablet 20 mg PO DAILY FLUID #90 tabs 03/27/23 [Rx Last Taken 08/18/23] benazepril 20 mg tablet 20 mg PO DAILY #90 tabs 09/03/23 [Rx Last Taken Unknown] Allergy/AdvReac Type Severity Reaction Status Date / Time No Known Allergies Allergy Verified 09/03/23 09:59 Family History Father Heart disease Hypertension Mother Diabetes Surgical History History of nasal surgery history stapedectomy Social History Smoking Status: Never smoker alcohol intake: current alcohol intake frequency: holidays/special occasions only substance use type: does not use what type of physical activity do you participate in: none ROS Constitutional Constitutional: Reports systems reviewed and no addt'l complaints, except as documented Eyes Eyes: Reports systems reviewed and no addt'l complaints, except as documented ENT HEENT: Reports systems reviewed and no addt'l complaints, except as documented Cardiovascular Cardiovascular: Reports systems reviewed and no addt'l complaints, except as documented Respiratory/Chest Respiratory/Chest: Reports systems reviewed and no addt'l complaints, except as documented Gastrointestinal Gastrointestinal: Reports systems reviewed and no addt'l complaints, except as documented Genitourinary Genitourinary: Reports systems reviewed and no addt'l complaints, except as documented Musculoskeletal Musculoskeletal: Reports systems reviewed and no addt'l complaints, except as documented Integumentary Integumentary: Reports wounds and other Details: Shearing wound on coccyx area with an obvious darkened erythematous area that looks like yeast infection or fungal infection in his upper buttocks. Patient is a poor historian but wears a diaper not sure if he is having any incontinence issues. Neurologic Neurologic: Reports systems reviewed and no addt'l complaints, except as documented Psychiatric Psychiatric: Reports systems reviewed and no addt'l complaints, except as documented Endocrine Endocrinology: Reports systems reviewed and no addt'l complaints, except as documented Hematologic/Lymphatic Hematologic/Lymphatic: Reports systems reviewed and no addt'l complaints, except as documented Allergic/Immunologic Allergic/Immunologic: Reports systems reviewed and no addt'l complaints, except as documented Vital Signs Vital Signs Vital Signs: 09/17/23 08:11 Temperature 97.1 F L Temperature Source Temporal Pulse Rate 73 Respiratory Rate 18 Blood Pressure 155/76 H Blood Pressure Mean 102 Blood Pressure Source Monitor Oxygen Delivery Method Room Air Weight Weight: 258 lb Body Mass Index (BMI) 0.0 Physical Exam Const alert and oriented x3 General Appearance: cooperative Exam Limitations: no limitations HEENT normocephalic Head and Scalp: normal to inspection Eyes General Eye: normal appearance of both eyes Neck full ROM Resp normal respiratory effort Effort and Inspection: able to speak in complete sentences Auscultation: clear to auscultation bilaterally Cardio regular rate and regular rhythm Palpation: normal PMI Rate: regular rate Rhythm: regular rhythm Back/Spine Back/Spine Narrative: Well approximated suture line lower lumbar and in the sacral area Cervical Spine: cervical ROM normal Thoracic Spine / Upper Back: normal to inspection Pelvis: buttocks abnormal left (Shearing stage II ulcer of the left buttocks cheek with some darkened erythematous around the area) left Coccyx: other Wound on coccyx area Skin skin turgor normal Skin Narrative: Darkened erythema around the wound area on the sacrum which looks like a fungal infection Neuro oriented x3 Speech: speech normal Gait (Neuro): assistive device used Psych Psych Narrative: Very poor historian Appearance: grossly normal Attitude: calm Activity / Motor Behavior: appropriate eye contact Speech: normal speech Thought Process: other Poor historian slow to respond to questions not sure about every anything Memory / Cognition: memory grossly impaired Insight: limited Judgement: fair Debridement Note Debridement Note Wound debrided: Shearing ulcer Laterality: Left Wound Grade/Stage: stage II Type of Debridement: Excisional debridement Anesthesia Used: 5% Lidocaine Gel Depth: Down to and including healthy tissue Percentage of wound debrided: 100 Instrument Used: 7mm curette Tissue Removed: Devitalized tissue and some fibrin Severity: Limited To Skin Breakdown Amount of bleeding with debridement: Mild Bleeding Controlled with: Compression and gauze Patient tolerated procedure: Patient tolerated procedure well Post-Debridement Measurements and Additional Note: Post-Debridement Measurements/Treatment - Nurse 1 - General Ulcer Assessment Start: 09/17/23 08:11 Freq: Status: Active Protocol: WILLIAM Activity Type Activity Date Activity User E-sign Co-sign Detail Recorded Client Recorded Date Recorded By Document 09/17/23 08:11 Desktop 09/17/23 08:26 09/17/23 08:11 - Today's Visit Information Type of service Initial Visit Arrival Mode Wheelchair Transfer Assistance Manual Patient Identification Verified (Name & Yes ) Patient Requires Transmission-Based No Precautions Safety Precautions Fall Prevention Height and Weight Height 229 ft 7.91 in Weight 258 lb Weight in Pounds 258.0 lbs Weight Measurement Method Estimated by Patient Body Mass Index (BMI) 0.0 BMI Classification Underweight BSA - Lety 33.35 Vital Signs Temperature (97.8 F-99.1 F) 97.1 F L Temperature Source Temporal Pulse Rate (60-100) 73 Pulse Location Monitor Respiratory Rate (12-18) 18 Oxygen Delivery Method Room Air Blood Pressure (90/60-120/80) 155/76 H Blood Pressure Mean 102 Source Monitor History Since Last Visit- (Skip if this is Patient's initial visit) Left Footwear Regular Shoe Right Footwear Regular Shoe Pain Scale: 0-10 Numeric Is Patient Pain Free? Yes Communication Assessment Preferred language Urdu Opal Polisher Required No Able to Read Yes Able to Write Yes Right Hearing Abillity Deaf Left Hearing Abillity Normal Visual Assistive Devices Glasses Teaching Assessment Preferences Verbal,Written Barriers to Learning None Readiness To Learn Good Anxiety Level Calm Cooperation Cooperative Does Patient Smoke tobacco or other No substances Functional Assessment Recent Decline in Ability to Perform Lower Body Dressing, Transferring Assistive Device With Patient No List Device(s) with Patient uses a walker at home came in using a w/c Culture/Methodist/Motor Equipment Lieutenant Cultural/Methodist Needs that may affect No Treatment Plan Would you allow our [facility] rn clinical research to No meet you for the purpose of spiritual/ emotional support? Motor Equipment Lieutenant to contact place of jain No WC - Nurse 1 - General Ulcer Measurement Start: 09/17/23 08:11 Freq: Status: Active Protocol: Activity Type Activity Date Activity User E-sign Co-sign Detail Recorded Client Recorded Date Recorded By Document 09/17/23 08:11 GM Desktop 09/17/23 08:26 GM 09/17/23 08:11 Wound Center Nurse 1 Sacral -Combined with other wound Yes -Combined with (Name of Wound-Exactly Sacral as it is documented) -Current Size (cm) - Length 5 -Current Size (cm) - Width 5.4 -Current Size (cm) - Depth 0.1 -Total Square Cm 27.0 -Date of Last Picture (Recall this 09/17/23 field) -Photo Taken Yes -Epithelialization Small 1-33% -Tunneling No -Undermining/Tunneling No -Circular Undermining No -Exudate Amt Small -Exudate Type Serous -Wound Margin Flat & Intact -Granulation Amt Medium (34-66%) -Granulation Quality Red -Necrosis Amt Small (1-33%) -Necrotic Tissue Type Adherent Slough -Structure Exposed N/A -Texture (Eva-wound Skin Appearance) Assessed -Moisture (Eva-wound Skin Appearance) Assessed -Color (Eva-wound Skin Appearance) Assessed -Temperature (Eva-wound Skin No Abnormality Appearance) (Pt Warm) -Tenderness on Palpation (Eva-wound No Skin Appearance) -Ulcer Cleansing Soap and Water -Foul Odor after Cleansing No -Anesthetic Used 5% Lidocaine Gel WC - Nurse 2 - General Ulcer CM Notes Start: 09/17/23 08:11 Freq: Status: Active Protocol: Activity Type Activity Date Activity User E-sign Co-sign Detail Recorded Client Recorded Date Recorded By Document 09/17/23 08:34 MW Desktop 09/17/23 08:40 MW 09/17/23 08:34 Wound Center Nurse 2 -Time 08:35 -Correct Patient Yes -Correct Side, Site, Position Yes -Correct Procedure Yes -Procedure Performed Yes -Type of Procedure Debridement -Clinical Debridement Subcutaneous -Tissue Removed Subcutaneous -Post Debridement (cm) - Length 4.0 -Post Debridement (cm) - Width 5.5 -Post Debridement (cm) - Depth 0.1 -Total Square (Post) (cm) 22.00 -Area of Debridement (cm) - Length 4.0 -Area of Debridement (cm) - Width 5.5 -Total Square (Area) (cm) 22.00 -Tunneling No -Undermining/Tunneling No -Circular Undermining No -Wound/Ulcer Outcome Not Healed -Ulcer Cleansing Rinsed/ Irrigated with Saline -Foul Odor after Cleansing No -Bioengineered Tissue No -Bleeding Controlled with Pressure -Treatment Response Procedure Tolerated Well -Offloading No -Debridement - Subq, 1st 20sq cm Yes -Debridement, SubQ, ea addt'l 20sq cm 1 or part thereof Pain Scale: 0-10 Numeric Is Patient Pain Free? Yes - Nurse 3 - General Ulcer D/C NN Start: 09/17/23 08:11 Freq: Status: Active Protocol: Activity Type Activity Date Activity User E-sign Co-sign Detail Recorded Client Recorded Date Recorded By Document 09/17/23 08:51 KW Desktop 09/17/23 08:53 KW 09/17/23 08:51 Wound Care Center Nurse 3 Sacral -Primary Dressing Applied Melgisorb AG -Other Dressing xeroform -Melgisorb AG 2 Pain Scale: 0-10 Numeric Is Patient Pain Free? Yes - Visit Discharge Discharge Condition Stable Ambulatory Status Wheelchair Transportation Private Auto Medication Reconcilliation completed & No provided to patient/care provider Clinical Summary of Care Provided Yes Assessment/Plan Assessment/Plan (1) Decubitus ulcer of sacral region, stage 2: CODE(S): L89.152 - Pressure ulcer of sacral region, stage 2 PLAN: Wash the sacral area with antibacterial soap rinse apply Xeroform to wound base cover with a foam dressing every day Follow-up 1 week We will apply for home health care for dressing changes and a gel cushion for his chairs (2) Spinal stenosis of lumbar region: CODE(S): M48.061 - Spinal stenosis, lumbar region without neurogenic claudication QUALIFIERS: Neurogenic claudication status: with neurogenic claudication Qualified Code(s): M48.062 - Spinal stenosis, lumbar region with neurogenic claudication (3) Candidiasis of urogenital site: CODE(S): B37.49 - Other urogenital candidiasis PLAN: Fluconazole 100 mg 1 p.o. daily for 30 days
[2023-09-24 08:09] VITALS: BP 140/77; PULSE 74; RESP 20; TEMP 36
--- NOTE | 2023-09-24 12:09 | PN.PCM_ITS ---
History of Present Illness Date of Service: 09/24/23 Chief Complaint: Follow-up on a coccyx wound History of Wound: This is a 72-year-old white male who is pretty much at fresh postop of lower back surgery and has been poorly ambulating and only ambulating with a walker sits in a chair most of the day has developed shearing ulcer on his coccyx area. Son brought him in and will be helping with providing care his is currently in the hospital having her knees done so they will We will apply for home health care also. Progress of Wound: So home health care came and has been doing the dressing changes and he looks good he is healed we will be discharging him from the wound center I suggest he continue because this kal will not stay off his but it will probably reopen if he does not continue with dressing changes and padding and protecting. He also said got a note that he did refuse the gel cushion I do not know why I think because he does not have a wheelchair but he can buy one he needs to buy a gel cushions he can sit on something that is proper for his buttocks to keep him from breaking down. Continue using the fluconazole it is fading that darkened erythema area but he is only been on the medication a week and that is like a month-long thing so if he has any more issues he can call us or come return otherwise he can be discharged from the wound center Subjective Subjective Brought his son into the room and discussed discharge planning with him and his father and discussed why he does need to come anymore and to continue dressing changes probably for another week or 2 since he has home health care. Objective Data Objective Data Buttocks wound is closed still has some darkened erythema around the edges from the fungal infection he is to continue using of fluconazole otherwise will be discharged from the wound center follow-up as needed Vital Signs: Vital Signs Temp Pulse Resp BP O2 Del Method 96.8 F L 74 20 H 140/77 H Room Air 09/24/23 08:09 09/24/23 08:09 09/24/23 08:09 09/24/23 08:09 09/17/23 08:11 Oxygen Delivery Method Room Air Weight: 258 lb Body Mass Index (BMI) 0.0 Lab / Micro Data Attestation: I reviewed the patient's lab results. Physical Exam Const alert and oriented x3 General Appearance: cooperative Exam Limitations: no limitations HEENT normocephalic Head and Scalp: normal to inspection Eyes General Eye: normal appearance of both eyes Neck full ROM Resp normal respiratory effort Effort and Inspection: able to speak in complete sentences Auscultation: clear to auscultation bilaterally Cardio regular rate and regular rhythm Palpation: normal PMI Rate: regular rate Rhythm: regular rhythm Back/Spine Back/Spine Narrative: Well approximated suture line lower lumbar and in the sacral area Cervical Spine: cervical ROM normal Thoracic Spine / Upper Back: normal to inspection Pelvis: buttocks abnormal left (Shearing stage II ulcer of the left buttocks cheek with some darkened erythematous around the area) left Coccyx: other Wound on coccyx area Skin skin turgor normal Skin Narrative: Darkened erythema around the wound area on the sacrum which looks like a fungal infection Neuro oriented x3 Speech: speech normal Gait (Neuro): assistive device used Psych Psych Narrative: Very poor historian Appearance: grossly normal Attitude: calm Activity / Motor Behavior: appropriate eye contact Speech: normal speech Thought Process: other Poor historian slow to respond to questions not sure a bout every anything Memory / Cognition: memory grossly impaired Insight: limited Judgement: fair Debridement Note Debridement Note No debridement was completed: No debridement was completed today Post-Debridement Measurements and Additional Note: Post-Debridement Measurements/Treatment - Nurse 1 - General Ulcer Assessment Start: 09/17/23 08:11 Freq: Status: Active Protocol: RICCI.CRYS Activity Type Activity Date Activity User E-sign Co-sign Detail Recorded Client Recorded Date Recorded By Document 09/17/23 08:11 Desktop 09/17/23 08:26 Document 09/24/23 08:09 Desktop 09/24/23 08:15 09/17/23 09/24/23 08:11 08:09 - Today's Visit Information Type of service Initial Visit Follow-up Visit (Physician/LINK TRAINER OPERATOR ) Arrival Mode Wheelchair Wheelchair Transfer Assistance Manual Manual Transfer Assist (Other) x2 Patient Identification Verified (Name & Yes Yes ) Patient Requires Transmission-Based No No Precautions Safety Precautions Fall Prevention Height and Weight Height 229 ft 7.91 in Weight 258 lb Weight in Pounds 258.0 lbs Weight Measurement Method Estimated by Patient Body Mass Index (BMI) 0.0 0.0 BMI Classification Underweight Underweight BSA - Lety 33.35 Vital Signs Temperature (97.8 F-99.1 F) 97.1 F L 96.8 F L Temperature Source Temporal Temporal Pulse Rate (60-100) 73 74 Pulse Location Monitor Monitor Respiratory Rate (12-18) 18 20 H Respiratory rate source Observation Oxygen Delivery Method Room Air Blood Pressure (90/60-120/80) 155/76 H 140/77 H Blood Pressure Mean (mm Hg) 102 98 Source Monitor Monitor History Since Last Visit- (Skip if this is Patient's initial visit) Have you changed medications since your No last visit? Any new allergies or adverse reactions No Had a fall/change in ADL's that may No increase risk of falls Signs or symptoms of abuse and/or No neglect since last visit Have you been in the hospital since your No last visit? Has dressing in place as prescribed Yes Has compression in place as prescribed N/A Has offloadiing in place as prescribed Yes Experienced any changes in pain level or No management Left Footwear Regular Shoe Right Footwear Regular Shoe Pain Scale: 0-10 Numeric Is Patient Pain Free? Yes Yes Communication Assessment Preferred language Bahraini Coin Machine Servicer Repairer Required No Able to Read Yes Able to Write Yes Right Hearing Abillity Deaf Left Hearing Abillity Normal Visual Assistive Devices Glasses Teaching Assessment Preferences Verbal,Written Barriers to Learning None Readiness To Learn Good Anxiety Level Calm Cooperation Cooperative Does Patient Smoke tobacco or other No substances Functional Assessment Recent Decline in Ability to Perform Lower Body Dressing, Transferring Assistive Device With Patient No List Device(s) with Patient uses a walker at home came in using a w/c Culture/Anabaptist/Early Childhood Education Instructor Cultural/Anabaptist Needs that may affect No Treatment Plan Would you allow our hospital indirect sales representative to No meet you for the purpose of spiritual/ emotional support? Early Childhood Education Instructor to contact place of jewish No WC - Nurse 1 - General Ulcer Measurement Start: 09/17/23 08:11 Freq: Status: Active Protocol: Activity Type Activity Date Activity User E-sign Co-sign Detail Recorded Client Recorded Date Recorded By Document 09/17/23 08:11 GM Desktop 09/17/23 08:26 GM Document 09/24/23 08:09 DL Desktop 09/24/23 08:15 DL 09/17/23 09/24/23 08:11 08:09 Wound Center Nurse 1 Sacral -Combined with other wound Yes -Combined with (Name of Wound-Exactly Sacral as it is documented) -Current Size (cm) - Length 5 0.5 -Current Size (cm) - Width 5.4 0.5 -Current Size (cm) - Depth 0.1 0.1 -Total Square Cm 27.0 0.25 -Date of Last Picture (Recall this 09/17/23 field) -Photo Taken Yes -Epithelialization Small 1-33% -Tunneling No -Undermining/Tunneling No -Circular Undermining No -Exudate Amt Small Small -Exudate Type Serous Serosanguineous -Wound Margin Flat & Intact Indistinct, Non -Visible -Granulation Amt Medium (34-66%) None Present (0 %) -Granulation Quality Red -Slough/Fibrin Yes -Necrosis Amt Small (1-33%) Small (1-33%) -Necrotic Tissue Type Adherent Slough Adherent Slough -Structure Exposed N/A N/A -Texture (Eva-wound Skin Appearance) Assessed Excoriation, Scarring,Rash -Moisture (Eva-wound Skin Appearance) Assessed Dry/Scaly -Color (Eva-wound Skin Appearance) Assessed No Abnormality -Temperature (Eva-wound Skin No Abnormality No Abnormality Appearance) (Pt Warm) (Pt Warm) -Tenderness on Palpation (Eva-wound No No Skin Appearance) -Ulcer Cleansing Soap and Water Soap and Water -Foul Odor after Cleansing No No -Anesthetic Used 5% Lidocaine 5% Lidocaine Gel Gel WC - Nurse 2 - General Ulcer CM Notes Start: 09/17/23 08:11 Freq: Status: Active Protocol: Activity Type Activity Date Activity User E-sign Co-sign Detail Recorded Client Recorded Date Recorded By Document 09/17/23 08:34 MW Desktop 09/17/23 08:40 MW Document 09/24/23 08:27 MW Desktop 09/24/23 08:31 MW 09/17/23 09/24/23 08:34 08:27 Wound Center Nurse 2 Sacral -Time 08:35 08:28 -Correct Patient Yes Yes -Correct Side, Site, Position Yes Yes -Correct Procedure Yes Yes -Procedure Performed Yes No -Type of Procedure Debridement -Clinical Debridement Subcutaneous -Tissue Removed Subcutaneous -Post Debridement (cm) - Length 4.0 0 -Post Debridement (cm) - Width 5.5 0 -Post Debridement (cm) - Depth 0.1 0 -Total Square (Post) (cm) 22.00 0 -Area of Debridement (cm) - Length 4.0 -Area of Debridement (cm) - Width 5.5 -Total Square (Area) (cm) 22.00 -Tunneling No No -Undermining/Tunneling No No -Circular Undermining No No -Wound/Ulcer Outcome Not Healed Healed- Epithelialized -Ulcer Cleansing Rinsed/ Irrigated with Saline -Foul Odor after Cleansing No -Bioengineered Tissue No -Bleeding Controlled with Pressure -Treatment Response Procedure Tolerated Well -Offloading No -Debridement - Subq, 1st 20sq cm Yes -Debridement, SubQ, ea addt'l 20sq cm 1 or part thereof Pain Scale: 0-10 Numeric Is Patient Pain Free? Yes Yes - Nurse 3 - General Ulcer D/C NN Start: 09/17/23 08:11 Freq: Status: Active Protocol: Activity Type Activity Date Activity User E-sign Co-sign Detail Recorded Client Recorded Date Recorded By Document 09/17/23 08:51 KW Desktop 09/17/23 08:53 KW Document 09/24/23 08:39 MW Desktop 09/24/23 08:40 MW 09/17/23 09/24/23 08:51 08:39 Wound Care Center Nurse 3 Sacral -Ulcer Cleansing Rinsed/ Irrigated with Saline -Foul Odor after Cleansing No -Negative Pressure Wound Therapy N/A -Primary Dressing Applied Melgisorb AG Mepilex Border, NonAdherent Contact Layer -Other Dressing xeroform xeroform -Melgisorb AG 2 -Mepilex Border 1 Treatment Response Procedure Tolerated Well Pain Scale: 0-10 Numeric Is Patient Pain Free? Yes Yes Teaching: Wound Center Discharge Instructions -Person Taught Patient,Family -Teaching Method Discussion -Response to teaching Verbalize understanding Dressing Your Wound -Person Taught Patient,Family -Teaching Method Discussion, Demonstration -Response to teaching Verbalize understanding WC - Visit Discharge Discharge Condition Stable Stable Ambulatory Status Wheelchair Wheelchair Transportation Private Auto Private Auto Accompanied by son Medication Reconcilliation completed & No No provided to patient/care provider Clinical Summary of Care Provided Yes Yes Assessment/Plan Assessment/Plan (1) Decubitus ulcer of sacral region, stage 2: CODE(S): L89.152 - Pressure ulcer of sacral region, stage 2 PLAN: Wash the sacral area with antibacterial soap rinse apply Xeroform to wound base cover with a foam dressing every day Continue dressing changes till patient gets his Gelfoam seat cushion and is not putting pressure on the area as much. Patient to be discharged from the wound center and he can follow-up as needed Patient is to continue the fluconazole daily until it is done (2) Spinal stenosis of lumbar region: CODE(S): M48.061 - Spinal stenosis, lumbar region without neurogenic claudication QUALIFIERS: Neurogenic claudication status: with neurogenic claudication Qualified Code(s): M48.062 - Spinal stenosis, lumbar region with neurogenic claudication (3) Candidiasis of urogenital site: CODE(S): B37.49 - Other urogenital candidiasis PLAN: Fluconazole 100 mg 1 p.o. daily for 30 days
== END 2023-10-02 23:59 | disposition home or self-care (01) ==
LOC: WC 08:00
PROVIDERS: PCP Family Medicine; Referring Provider Orthopaedic Surgery; Visit Provider Nurse Practitioner
DX: L89.152 Pressure ulcer of sacral region, stage 2 (principal); E78.00 Pure hypercholesterolemia, unspecified; I10 Essential (primary) hypertension; M48.061 Spinal stenosis, lumbar region without neurogenic claudication; M48.062 Spinal stenosis, lumbar region with neurogenic claudication; B37.49 Other urogenital candidiasis; Z79.899 Other long term (current) drug therapy
CPT/HCPCS: 11042; 11045; 99203; 99213; G0463

== ENCOUNTER 2023-10-23 09:31 | Observation (INO) | payer MEDICARE, OTHER, SELFPAY ==
[2023-10-23] VITALS (7 sets, daily range): BP systolic 122–164; BP diastolic 62–90; PULSE 68–79; RESP 12–18; TEMP 36.6–36.8; O2SAT 96–99; BMI 35.7; BMI 34.4
--- NOTE | 2023-10-23 10:00 | EKG12_ITS ---
Test Reason : WEAKNESS Blood Pressure : / mmHG Vent. Rate : 071 BPM Atrial Rate : 071 BPM P-R Int : 158 ms QRS Dur : 070 ms QT Int : 386 ms P-R-T Axes : 012 014 021 degrees QTc Int : 419 ms Normal sinus rhythm Low voltage QRS Nonspecific ST abnormality Abnormal ECG Confirmed by CARROLL ESTEVEZ, JNENY ([id number]), editor in chief newspaper HANS NORRIS ([id number]) on 10/24/2023 1:32:55 PM Referred By: GREGORIO Confirmed By:JENNY HODGES MD
--- NOTE | 2023-10-23 10:01 | RAD_ITS ---
STUDY: X-RAY - LUMBAR SPINE REASON FOR EXAM: Male, 72 years old. Fall s/p surgery TECHNIQUE: 3 view(s) of the lumbar spine were obtained. COMPARISON: Comparison is made with prior study dated May 15, 2023. FINDINGS: Normal lumbar lordosis. There is no substantial scoliosis. Stable mild anterolisthesis of L4 on L5. There is multilevel endplate spondylosis of the lumbar vertebrae. There is multi-level degenerative disc disease with multi-level disc space narrowing. Facet joint osteoarthritis. There is atherosclerotic calcification of the abdominal aorta without a demonstrated aneurysm. RAD/Lumbar Spine 2 or 3 Views IMPRESSION: Degenerative changes of the spine, as detailed above. Electronically Signed: Silvestre Miles MD at 10:50 EST ,
--- NOTE | 2023-10-23 10:02 | ED.VIS.FALL ---
HPI HPI - Fall History of Present Illness Chief Complaint: Lower Extremity Injury Detail of Chief Complaint: Falls times 3 and the last 36 hours. Informant: patient Occured/Mechanism Occurred: Today and Yesterday Mechanism/Context: Yes same level fall Usually ambulates: Without assistance Pain/Injury Pain Location: none Quality of Pain: Dull and Aching Current Severity: Mild Maximum Severity: Mild Associated Symptoms Associated Symptoms: Positive for Inability to ambulate; Negative for Parasthesias or Loss of function Narrative Narrative: 72-year-old male history of hypertension had back surgery done for what I think was spinal stenosis in August by Dr. Vigil at this facility. Patient states that he has had a cough for the last several days and has had 3 falls in the last 24 to 48 hours. He denies hitting his head. No LOC. He denies being on blood thinners. States his cough is nonproductive. He denies any fever or chills. No LOC. He denies any nausea, vomiting or diarrhea. He lives at home with his and son and 70 fell today they were unable to get him off the floor and he was brought in by squad. Prior similar symptoms: No Recent Illness/Hospitalization: No PFSH PFS Medical History Arthritis Hearing problem High cholesterol History of echocardiogram History of edema Hypertension Kidney stones Loss of hearing No natural teeth Non-smoker Spinal stenosis of lumbar region Walker as ambulation aid Wears glasses Home Medications multivitamin 1 tab PO DAILY SUPPLEMENT 10/05/19 [History Last Taken 08/18/23] handicap placard #1 ea 11/21/22 [Rx Last Taken Unknown] furosemide 20 mg tablet 20 mg PO DAILY FLUID #90 tabs 03/27/23 [Rx Last Taken 08/18/23] benazepril 20 mg tablet 20 mg PO DAILY #90 tabs 09/03/23 [Rx Last Taken Unknown] Allergy/AdvReac Type Severity Reaction Status Date / Time No Known Allergies Allergy Verified 10/23/23 09:35 Family History Father Heart disease Hypertension Mother Diabetes Surgical History History of nasal surgery history stapedectomy Social History Smoking Status: Never smoker alcohol intake: current alcohol intake frequency: holidays/special occasions only substance use type: does not use what type of physical activity do you participate in: none ROS ROS ED ROS Narrative Cough. Generalized weakness. Falls. Review of Systems ROS Unobtainable: Denies due to encephalopathy Constitutional Constitutional ED: Denies chills or fever(s) Eyes Eyes: Denies blurry vision ENT ENT ED: Denies ear pain Cardiovascular Cardiovascular: Denies chest pain Respiratory/Chest Respiratory/Chest: Reports cough Gastrointestinal Gastrointestinal: Denies abdominal pain, diarrhea, nausea or vomiting Genitourinary Genitourinary ED: Denies dysuria or hematuria Musculoskeletal Musculoskeletal: Denies arthralgias Integumentary Denies abscess Neurologic Neurologic: Denies headache(s) Psychiatric Psychiatric: Denies anxiety or depression Endocrine Endocrinology: Denies polydipsia or polyphagia Hematologic/Lymphatic Hematologic/Lymphatic: Denies easy bleeding, easy bruising or lymphadenopathy Allergic/Immunologic Allergic/Immunologic ED: Denies mouth swelling, tongue swelling or urticaria EXAM Physical Exam Narrative Exam Narrative: 72-year-old male vital signs stable afebrile. Pulse ox 99% on room air no hypoxia. He is in no distress. Family present in the room at this time. H EENT exam unremarkable. Atraumatic. Nontender. No hematomas. Pupils round reactive light. Normal speech. No facial droop. Neck nontender. No lymphadenopathy. Lungs clear to auscultation. Heart regular rhythm in the 70s. Chest wall and ribs nontender. Abdomen soft nontender. Back nontender. Well-healed lower lumbar midline incision. Dry and clean. No bruising. Pelvic girdle intact. No shortening or rotation. Calves are nontender without edema. He can flex and extend both hips and knees. Dorsi and plantarflexion intact. Neurologically is awake and alert with no focal motor deficits. When I went to sit the patient up in bed to evaluate his back both he and I worked a lot just to get him set sit up in bed due to his weakness. He needed a lot of assistance. Const Vital Signs: 10/23/23 09:33 10/23/23 11:32 Temperature 97.8 F Temperature Source Temporal Pulse Rate 75 69 Respiratory Rate 18 15 Blood Pressure 122/88 H 164/90 H Blood Pressure Mean 99 114 Pulse Ox 99 98 Oxygen Delivery Method Room Air Room Air Positive well nourished, well developed and obese; Negative for cachectic, contractures or unkempt General Appearance ED: well developed and NAD; Negative for unkempt, cachectic or contractures Nutritional Appearance: obese; Negative for cachectic HEENT Reports normocephalic atraumatic; Negative for trauma, contusion, hematoma or tenderness Eyes PERRL and EOMs intact bilaterally General Eye ED: Negative for pale conjunctiva or scleral icterus Neck full ROM, no lymphadenopathy and supple General: Negative for tenderness Chest Wall inspection of chest normal and palpation of chest normal Chest: Negative for other Resp normal respiratory effort, no retractions and clear to auscultation bilaterally Effort and Inspection: Negative for pain with movement Auscultation: Negative for rales, rhonchi or wheezes Cardio regular rate, regular rhythm, S1 normal heart sound, S2 normal heart sound and no murmurs Rate: Negative for bradycardia or tachycardic Rhythm: Negative for abnormal rhythm Bruits: Negative for other GI non-tender, non-distended and no masses Inspection: Negative for abdominal distention Auscultation: normoactive bowel sounds Palpation: soft; Negative for guarding Back/Spine no CVA tenderness Back/Spine Narrative: Well-healed midline lumbar incision. Dry and clean. No bruising. General Back: Negative for CVA tenderness Cervical Spine: Negative for cervical spine tenderness Thoracic Spine / Upper Back: Negative for ROM limited, pain with ROM or thoracic spinal tenderness Lumbar Spine / Lower Back: Negative for lumbar spinal tenderness Extremity Extremity Narrative: Moving all 4 extremities. Nontender. No deformity. Neuro oriented x3 and CN's II-XII intact bilaterally Neuro Narrative: Generalized weakness. Sensorium / Orientation: alert, oriented to person and oriented to time; Negative for oriented to place, orientation impaired, confused, lethargic or stuporous Motor Exam: strength 5/5 throughout Psych mental status grossly normal and thought process normal Appearance: Negative for unkempt Attitude: No agitated Mood & Affect: Negative for depressed, anxious or tearful Skin General Skin Exam: Negative for other Lesions: no lesions and No lesion noted Rashes: no rashes Trauma: Negative for abrasion or laceration MDM MDM MDM Narrative Medical decision making narrative: 72-year-old male generally weak URI symptoms. Rule out COVID or flu versus other viral illnesses. Rule out pneumonia. Chest x-ray and labs being obtained. Also obtain x-ray of his lumbar spine. Patient does appear to be significantly weak. He may need to be admitted due to too weak to ambulate. Nurses tried to ambulate the patient with a lot of assistance to get out of bed to the walker But he could not do that on his own. Once he got to the walker he can walk. His called and she had recent surgery she is unable to get him up. He is fallen 3 times in the last 48 hours and she said at this moment she is unable to care for him in his current state. Will speak to the hospitalist about admission. History & Record Review Discussion w/independent historian: Patient Additional record(s) reviewed:: Prior inpatient record, Prior outpatient record, Prior ED visit and Prior labs Lab Data Attestation: I reviewed the patient's lab results. Lab results narrative: CBC shows a white count of 4. H&H of 13 and 39. Platelets are mildly low at 140. Chemistries show a gap of 5. BUN is 16 creatinine 1.49. Glucose 107. COVID-positive. Flu negative. Chest x-ray is negative. Labs: Laboratory Results - last 24 hr 10/23/23 10:15 WBC 4.9 RBC 4.10 L Hgb 13.7 Hct 39.7 L MCV 96.8 H MCH 33.4 H MCHC 34.5 RDW Std Deviation 47.8 H RDW Coeff of Lucien 13.7 Plt Count 140 L MPV 9.1 Immature Gran % (Auto) 1.400 H Neut % (Auto) 60.2 Lymph % (Auto) 23.1 [place] % (Auto) 14.7 H Eos % (Auto) 0.2 Baso % (Auto) 0.4 Absolute Neuts (auto) 2.9 Absolute Lymphs (auto) 1.13 Nucleated RBC % 0 Sodium 137 Potassium 4.9 Chloride 105 Carbon Dioxide 27.0 Anion Gap 5 BUN 16 Creatinine 1.49 H Estim Creat Clear Calc 46.27 Est GFR (MDRD) Af Amer 60 Est GFR (MDRD) Non-Af 49 L BUN/Creatinine Ratio 10.7 Glucose 107 H Calcium 9.2 Radiography Chest X-Ray - ED: 1 View, Read by ED Physician, Read by Radiologist, Heart, Lungs, Mediastinum, Bony Structures, No Acute Disease and Chronic Changes Diagnostic Testing: Clinical Impression(s) from Imaging Studies Lumbar Spine X-Ray 10/23/23 10:01 IMPRESSION: Degenerative changes of the spine, as detailed above. Electronically Signed: Silvestre Miles MD at 10:50 EST , Chest X-Ray 10/23/23 10:30 IMPRESSION: Normal x-ray examination of the chest. Electronically Signed: Silvestre Miles MD at 10:51 EST , Chest x-ray, portable, single view shows no acute abnormality. Interpreted by myself and the radiologist. Normal cardiac silhouette. Normal lung paul. Lumbar spine 3 views shows no acute abnormality. Interpreted both by myself and the radiologist. Chronic changes consistent with degenerative arthritis. No acute fracture. Rhythm Strip Rhythm Strip: Sinus Rhythm Rate: 71 Ectopy: None EKG Initial EKG: Attestation: I personally reviewed and interpreted this EKG as follows: Interpretation: Sinus Rhythm and No Acute Injury Pattern Comments: Normal sinus rhythm. Rate of 71. No acute signs of HI or ischemia. Low voltage. Discharge Plan Dx/Rx/DC Orders Clinical Impression: COVID, Generalized weakness, Multiple falls Disposition Disposition: Acute Care Hospital [facility]
[2023-10-23] MEDS: 0.9% Normal Saline (500mL Bag) 500 ML 1000 ML IV (10:22)
[2023-10-23] MEDS: HYDROcodone Bitartrate/Apap 5/325 Tablet PO (10:23)
[2023-10-23 10:29] LABS: Absolute Lymphocyte Count 1.13 X10^3/uL (0.83-4.51); Absolute Neutrophil Count 2.9 X10^3/uL (2.0-7.7); Basophil# 0.02 X10^3/uL; Basophil% 0.4 % (0-1); Eosinophil# 0.01 X10^3/uL; Eosinophils% 0.2 % (0-5); Hematocrit 39.7 % (40-54); Hemoglobin 13.7 g/dL (13.0-16.5); Lymphocyte # 1.13 X10^3/ul (0.83-4.51); Lymphocyte % 23.1 % (19-41); Mean Corp Hgb Conc 34.5 g/dL (32-36); Mean Corpuscular Hgb 33.4 pg (27.0-32.0); Mean Corpuscular Volume 96.8 fL (80-94); Mean Platelet Vol. 9.1 fl (6.2-12.0); Monocyte# 0.72 X10^3/uL; Monocyte% 14.7 % (0-10); NRBC Flagged by Analyzer 0 % (0-5); Neutrophil # 2.94 X10^3/uL (2.7-7.7); Neutrophil % 60.2 % (47-70); Platelet Count 140 K/mm3 (150-450); RBC Distribution Width CV 13.7 % (11.6-14.6); RBC Distribution Width SD 47.8 fl (35.1-43.9); White Blood Count 4.9 K/mm3 (4.4-11.0)
--- NOTE | 2023-10-23 10:30 | RAD_ITS ---
STUDY: X-RAY CHEST REASON FOR EXAM: Male, 72 years old. Cough TECHNIQUE: Single AP portable view of the chest. COMPARISON: Comparison is made with prior study dated February 14, 2022. FINDINGS: EKG electrodes are seen. The lungs are clear and expanded. There is no demonstrated pleural abnormality. Normal size heart. Normal mediastinum and ashley. Normal visualized pulmonary arteries. Normal visualized aortic arch and descending thoracic aorta. There are diffuse degenerative changes of the visualized thoracic spine. Normal visualized ribs, clavicles, and shoulders. There is no demonstrated abnormality of the visualized soft tissue structures of the upper abdomen. RAD/Chest 1 View (Portable) IMPRESSION: Normal x-ray examination of the chest. Electronically Signed: Silvestre Miles MD at 10:51 EST ,
[2023-10-23 10:40] LABS: Anion Gap 5 (5-15); BUN 16 mg/dL (7-18); BUN/Creat Ratio 10.7 RATIO (10-20); Calcium,Total 9.2 mg/dL (8.5-10.1); Chloride 105 mmol/L (98-107); Creatinine, Serum 1.49 mg/dL (0.70-1.30); EST Glomerular Filtration Rate 49 mL/min (>60); Est Glom Filt Rate - Afr Amer 60 mL/min (>60); Estimated Creatinine Clearance 46.27 ml/min; Glucose 107 mg/dL (74-106); Potassium 4.9 mmol/L (3.5-5.1); Sodium Level 137 mmol/L (136-145)
--- NOTE | 2023-10-23 11:50 | ED.RN ---
PATIENT LIVES W/ AT HOME. CALLED IN TO ED AND STATED SHE RECENTLY HAD KNEE REPLACEMENT SURGERY AND IS UNABLE TO HELP PATIENT AT HOME, THEY HAVE STEPS TO GET INTO RESIDENCE. CONCERNS THAT NO ONE IS THERE TO HELP
--- NOTE | 2023-10-23 12:13 | HP.PCM.HOS_ITS ---
HPI - General General Date of Service: 10/23/23 Chief Complaint: debility HPI Narrative ZACHERY PATEL, is a 72 M who presents recurrent falls. Patient is been home, has not been feeling well for the past 3 to 4 days and has been very weak and falling. Patient unable to manage safely at home and was sent to the emergency room. In the emergency room, patient underwent a workup was unremarkable with exception he is COVID-19 positive. Patient has had COVID-19 twice before. Does not know how he contracted it. [facility] Medical History Arthritis Hearing problem High cholesterol History of echocardiogram History of edema Hypertension Kidney stones Loss of hearing No natural teeth Non-smoker Spinal stenosis of lumbar region Walker as ambulation aid Wears glasses Home Medications multivitamin 1 tab PO DAILY SUPPLEMENT 10/05/19 [History Last Taken 08/18/23] handicap placard #1 ea 11/21/22 [Rx Last Taken Unknown] furosemide 20 mg tablet 20 mg PO DAILY FLUID #90 tabs 03/27/23 [Rx Last Taken 08/18/23] benazepril 20 mg tablet 20 mg PO DAILY #90 tabs 09/03/23 [Rx Last Taken Unknown] Allergy/AdvReac Type Severity Reaction Status Date / Time No Known Allergies Allergy Verified 10/23/23 09:35 Family History Father Heart disease Hypertension Mother Diabetes Surgical History History of nasal surgery history stapedectomy Social History Smoking Status: Never smoker alcohol intake: current alcohol intake frequency: holidays/special occasions only substance use type: does not use what type of physical activity do you participate in: none ROS ROS Narrative All review of systems were negative except as mentioned above in the history of present illness and the other review of systems. Vital Signs Vital Signs Vital Signs: 10/23/23 09:33 10/23/23 11:32 Temperature 36.6 C Temperature Source Temporal Pulse Rate 75 69 Respiratory Rate 18 15 Blood Pressure 122/88 H 164/90 H Blood Pressure Mean 99 114 Pulse Ox 99 98 Oxygen Delivery Method Room Air Room Air Weight Weight: 113 kg Body Mass Index (BMI) 35.7 Physical Exam Const alert and no apparent distress HEENT normocephalic and hearing grossly normal bilaterally Resp normal respiratory effort, no retractions, no use of accessory muscles and clear to auscultation bilaterally Cardio regular rate, regular rhythm, S1 normal heart sound and S2 normal heart sound GI normal to inspection, nondistended, normoactive bowel sounds, soft to palpation, non-tender and non-distended Extremity normal to inspection Psych affect normal Results Lab / Micro Data Attestation: I reviewed the patient's lab results. 10/23/23 10:15 10/23/23 10:15 Labs: Laboratory Results - last 24 hr 10/23/23 10:15: WBC 4.9, RBC 4.10 L, Hgb 13.7, Hct 39.7 L, MCV 96.8 H, MCH 33.4 H, MCHC 34.5, RDW Std Deviation 47.8 H, RDW Coeff of Lucien 13.7, Plt Count 140 L, MPV 9.1, Immature Gran % (Auto) 1.400 H, Neut % (Auto) 60.2, Lymph % (Auto) 23.1, [place] % (Auto) 14.7 H, Eos % (Auto) 0.2, Baso % (Auto) 0.4, Absolute Neuts (auto) 2.9, Absolute Lymphs (auto) 1.13, Nucleated RBC % 0, Sodium 137, Potassium 4.9, Chloride 105, Carbon Dioxide 27.0, Anion Gap 5, BUN 16, Creatinine 1.49 H, Estim Creat Clear Calc 46.27, Est GFR (MDRD) Af Amer 60, Est GFR (MDRD) Non-Af 49 L, BUN/Creatinine Ratio 10.7, Glucose 107 H, Calcium 9.2 Micro: Microbiology 10/23/23 10:49 Nasal Secretion SARS-CoV-2 & FLU Antigen (Rapid) - Final SARS-CoV-2 (COVID 19) Rhythm Strip Rhythm Strip: Sinus Rhythm Rate: 71 Ectopy: None Imagaing Radiology Impression Lumbar Spine X-Ray 10/23/23 10:01 IMPRESSION: Degenerative changes of the spine, as detailed above. Electronically Signed: Silvestre Miles MD at 10:50 EST , Chest X-Ray 10/23/23 10:30 IMPRESSION: Normal x-ray examination of the chest. Electronically Signed: Silvestre Miles MD at 10:51 EST , Assessment & Plan Assessment/Plan (1) Multiple falls: PLAN: Plan Debility with falls * Likely aggravated by COVID-19 * PT OT evaluate and treat. Case management to assist. Concerned the patient may require nursing home facility. COVID-19 * Patient states he started feeling sick 3 to 4 days ago. * Day 0 would be the 17. Patient need to quarantine from the 18 to the . * Patient not hypoxic and not in any respiratory distress his only main complaint is just weakness. No treatment indicated at this time. Chronic conditions * Hypertension: Continue with BenzePrO and furosemide. VTE prophylaxis low risk given current observation status. Disposition: Patient with no medical necessity for admission other than being weak and has COVID-19, which I am not going to treat. Patient will be observation status. Patient made aware that this may potentially lead to higher co-pay upon discharge. And very concerned patient requires nursing home facility. Will depend on insurance authorization which is unclear with now will be finalized. Charges/Coding Visit Charges Inpatient E&M: 59681 Init Hosp L2
--- NOTE | 2023-10-23 14:05 | CASEMGMT ---
Per nursing admission questions patient does not have a Healthcare Power of Electrical Systems Engineer or Healthcare Living Will. Patient is not interested in documents. Estefany LING
[2023-10-23] MEDS: Juven (unflavored) Packet 1 PACKET PO (17:30)
[2023-10-24 03:42] VITALS: BP 136/66; PULSE 73; RESP 16; TEMP 36.9; O2SAT 97
[2023-10-24 07:00] VITALS: BP 141/64; PULSE 69; RESP 18; TEMP 36.6; O2SAT 99
--- NOTE | 2023-10-24 08:34 | PN.HOSP_ITS ---
Reason for Visit Reason for Visit: Diagnoses Repeated falls (10/23/23) Subjective Subjective Has to go home so he can pay bills. Objective Data Objective Data Vital Signs: Vital Signs Temp Pulse Resp BP Pulse Ox O2 Del Method 36.6 C 69 18 141/64 H 99 Room Air 10/24/23 07:00 10/24/23 07:00 10/24/23 07:00 10/24/23 07:00 10/24/23 07:00 10/24/23 07:00 Oxygen Delivery Method Room Air Weight: 108.7 kg Body Mass Index (BMI) 34.4 Intake & Output: Intake and Output for Last 24 Hours 10/22/23 10/23/23 10/24/23 23:59 23:59 23:59 Intake Total 1040 / 1040 120 / 120 Balance 1040 / 1040 120 / 120 Lab / Micro Data 10/23/23 10:15 10/23/23 10:15 Labs: Laboratory Results - last 24 hr 10/23/23 10:15: WBC 4.9, RBC 4.10 L, Hgb 13.7, Hct 39.7 L, MCV 96.8 H, MCH 33.4 H, MCHC 34.5, RDW Std Deviation 47.8 H, RDW Coeff of Lucien 13.7, Plt Count 140 L, MPV 9.1, Immature Gran % (Auto) 1.400 H, Neut % (Auto) 60.2, Lymph % (Auto) 23.1, [place] % (Auto) 14.7 H, Eos % (Auto) 0.2, Baso % (Auto) 0.4, Absolute Neuts (auto) 2.9, Absolute Lymphs (auto) 1.13, Nucleated RBC % 0, Sodium 137, Potassium 4.9, Chloride 105, Carbon Dioxide 27.0, Anion Gap 5, BUN 16, Creatinine 1.49 H, Estim Creat Clear Calc 46.27, Est GFR (MDRD) Af Amer 60, Est GFR (MDRD) Non-Af 49 L, BUN/Creatinine Ratio 10.7, Glucose 107 H, Calcium 9.2 Micro: Microbiology 10/23/23 10:49 Nasal Secretion SARS-CoV-2 & FLU Antigen (Rapid) - Final SARS-CoV-2 (COVID 19) Radiography Diagnostic Testing: Radiology Impression Lumbar Spine X-Ray 10/23/23 10:01 IMPRESSION: Degenerative changes of the spine, as detailed above. Electronically Signed: Silvestre Miles MD at 10:50 EST , Chest X-Ray 10/23/23 10:30 IMPRESSION: Normal x-ray examination of the chest. Electronically Signed: Silvestre Miles MD at 10:51 EST , Rhythm Strip Rhythm Strip: Sinus Rhythm Rate: 71 Ectopy: None Physical Exam Const alert and no apparent distress HEENT head/scalp atraumatic Cardio regular rate, regular rhythm, S1 normal heart sound and S2 normal heart sound GI normal to inspection, nondistended, normoactive bowel sounds, soft to palpation, non-tender and non-distended Extremity normal to inspection Neuro Sensorium / Orientation: awake and alert Assessment & Plan Assessment/Plan (1) Multiple falls: PLAN: Plan Debility with falls * Likely aggravated by COVID-19 * PT OT evaluate and treat. Case management to assist. Concerned the patient may require halfway facility. COVID-19 * Patient states he started feeling sick 3 to 4 days ago. * Day 0 would be the 17th. Patient need to quarantine from the 18 to the . * Patient not hypoxic and not in any respiratory distress his only main complaint is just weakness. No treatment indicated at this time. Chronic conditions * Hypertension: Continue with BenzePrO and furosemide. VTE prophylaxis low risk given current observation status. Disposition: Patient with no medical necessity for admission other than being weak and has COVID-19, which I am not going to treat. Patient will be observation status. Patient made aware that this may potentially lead to higher co-pay upon discharge. And very concerned patient requires halfway facility. Will depend on insurance authorization which is unclear with now will be finalized. Charges/Coding Visit Charges Inpatient E&M: 19561 [facility] Hosp L1
[2023-10-24 08:50] VITALS: BP 127/60; PULSE 67; RESP 18; TEMP 36.8; O2SAT 100
[2023-10-24] MEDS: Multivitamins,Therapeutic Tablet 1 TABLET PO (08:52)
[2023-10-24] MEDS: Furosemide 20 MG Tablet PO (08:52)
[2023-10-24] MEDS: Juven (unflavored) Packet 1 PACKET PO (08:52)
[2023-10-24] MEDS: Lisinopril 20 MG Tablet PO (08:52)
[2023-10-24 11:49] VITALS: BP 141/64; PULSE 69; RESP 18; TEMP 36.6; O2SAT 99
--- NOTE | 2023-10-24 12:31 | WOUNDNOTE ---
wound photo: bilateral buttocks
--- NOTE | 2023-10-24 13:50 | CASEMGMT ---
Spoke with patient by phone to complete [employer] form. [employer] form explained to patient who voiced understanding and had no questions. Original form placed in pt?s chart and copy provided to patient.? Michelle Cortez, Discharge Planning Asst
--- NOTE | 2023-10-24 15:54 | DS.PCM_ITS ---
Providers Date of Admission: 10/23/23 Primary Care Physician: Dr. Brenden Peña, Consultations 10/24/23 04:05 Consult: Onc/Wound/parts representative Routine Comment: Reason for Consult:: coccyx wound Reason For Visit: DEBILITY Diagnosis Discharge Diagnosis (1) Multiple falls: Status: Acute Code(s): R29.6 - Repeated falls Plan Debility with falls * Likely aggravated by COVID-19 * PT OT evaluate and treat. Case management to assist. Concerned the patient may require custodial facility. COVID-19 * Patient states he started feeling sick 3 to 4 days ago. * Day 0 would be the . Patient need to quarantine from the to the . * Patient not hypoxic and not in any respiratory distress his only main complaint is just weakness. No treatment indicated at this time. Chronic conditions * Hypertension: Continue with BenzePrO and furosemide. VTE prophylaxis low risk given current observation status. Disposition: Patient with no medical necessity for admission other than being weak and has COVID-19, which I am not going to treat. Patient will be observation status. Patient made aware that this may potentially lead to higher co-pay upon discharge. And very concerned patient requires custodial facility. Will depend on insurance authorization which is unclear with now will be finalized. Patient will be discharged home with outpatient therapy. Medications at Discharge Home Medications multivitamin 1 tab PO DAILY SUPPLEMENT 10/05/19 handicap placard #1 ea 11/21/22 furosemide 20 mg tablet 20 mg PO DAILY FLUID #90 tabs 03/27/23 benazepril 20 mg tablet 20 mg PO DAILY #90 tabs 09/03/23 Weight / BMI Weight Weight: 108.7 kg Body Mass Index (BMI) 34.4 ABG / Lab / Microbiology Data 10/23/23 10:15 10/23/23 10:15 Microbiology: Microbiology 10/23/23 10:49 Nasal Secretion SARS-CoV-2 & FLU Antigen (Rapid) - Final SARS-CoV-2 (COVID 19) D/C Instructions Discharge Diet: No restrictions Meaningful Use Info Meaningful Use Diagnoses (Choose all that apply): None applicable Discharge Plan Admission Admit Date/Time: 10/23/23 12:10 Primary Reason for Your Visit: COVID-19 Attending Provider: Kings Tay Primary Care Provider: Brown,Brenden R Instructions Additional Instructions / Restrictions: You have COVID-19. Wear a mask around others for the next week. Follow-up with outpatient therapy. Discharge Orders/Prescriptions Prescriptions: Continued multivitamin Tablet 1 tab PO DAILY furosemide 20 mg tablet 20 mg PO DAILY Qty: 90 3RF (DME) handicap placard See Rx Instructions .ROUTE .MEDSUPPLY Qty: 1 0RF Rx Instructions: 5 Years duration benazepril 20 mg tablet 20 mg PO DAILY Qty: 90 3RF Referrals / Follow Up: Brenden Peña, [Primary Care Provider] - Within 2 Weeks Disposition Disposition (needs filled in before D/C Order can be placed): Home, Self Care Charges/Coding Visit Charges Inpatient E&M: 49919 Disch Hosp
[2023-10-24 16:20] VITALS: BP 127/60; PULSE 67; RESP 18; TEMP 36.8; O2SAT 100
--- NOTE | 2023-10-24 16:25 | CASEMGMT ---
Patient did ok with therapy and does not need SNF at discharge. RN NEGRA called to discuss needs at discharge. states she recently had knee replacement and would like patient to go to outpatient therapy at [facility]. declined additional needs at this time. had no further questions or concerns. Script for outpatient therapy received and faxed to [facility] with request to call patient and to schedule appointment. Script provided in patient's dishcarge paperwork.
== END 2023-10-24 15:56 | disposition home or self-care (01) ==
LOC: ED 12:14 → PCU 12:24
PROVIDERS: Emergency Provider Emergency Medicine; PCP Family Medicine
DX: U07.1 COVID-19 (principal); R53.1 Weakness; R26.2 Difficulty in walking, not elsewhere classified; I10 Essential (primary) hypertension; E78.00 Pure hypercholesterolemia, unspecified; R53.81 Other malaise; R29.6 Repeated falls; Z79.899 Other long term (current) drug therapy
CPT/HCPCS: 71045; 72100; 80048; 85025; 87428; 93005; 96360; 96361; 97162; 97166; 97802; 99221; 99284; J7040; A4216; G0378

== ENCOUNTER 2023-11-10 08:52 | Outpatient (RCR) | payer MEDICARE, OTHER, SELFPAY | END 2023-11-10 19:00 | disposition home or self-care (01) | LOC: PT 08:52 | PROVIDERS: PCP Family Medicine | DX: R53.1 Weakness (principal); R53.81 Other malaise ==

== ENCOUNTER → 2024-06-29 | Outpatient (CLI) | payer MEDICARE, OTHER, SELFPAY ==
[2024-06-29 15:23] LABS: Absolute Lymphocyte Count 1.39 X10^3/uL (0.83-4.51); Absolute Neutrophil Count 1.8 X10^3/uL (2.0-7.7); Basophil# 0.02 X10^3/uL; Basophil% 0.6 % (0-1); Eosinophil# 0.03 X10^3/uL; Eosinophils% 0.8 % (0-5); Hematocrit 39.2 % (40-54); Hemoglobin 13.6 g/dL (13.0-16.5); Lymphocyte # 1.39 X10^3/ul (0.83-4.51); Lymphocyte % 39.4 % (19-41); Mean Corp Hgb Conc 34.7 g/dL (32-36); Mean Corpuscular Hgb 32.9 pg (27.0-32.0); Mean Corpuscular Volume 94.7 fL (80-94); Monocyte# 0.25 X10^3/uL; Monocyte% 7.1 % (0-10); NRBC Flagged by Analyzer 0 % (0-5); Platelet Count 161 K/mm3 (150-450); RBC Distribution Width CV 13.1 % (11.6-14.6); RBC Distribution Width SD 44.7 fl (35.1-43.9); Red Blood Count 4.14 M/mm3 (4.6-6.2); White Blood Count 3.5 K/mm3 (4.4-11.0)
[2024-06-29 16:09] LABS: ALB/GLOB Ratio 0.9 RATIO (0.9-2.4); AST(SGOT) 32 U/L (15-37); Alanine Aminotransfer ALT/SGPT 29 U/L (16-61); Albumin, Serum 3.6 g/dL (3.2-5.0); Alkaline Phosphatase 68 U/L (45-117); Anion Gap 7 (5-15); BUN 15 mg/dL (7-18); BUN/Creat Ratio 12.5 RATIO (10-20); Calcium,Total 9.2 mg/dL (8.5-10.1); Chloride 109 mmol/L (98-107); EST Glomerular Filtration Rate 63 mL/min (>60); Est Glom Filt Rate - Afr Amer 76 mL/min (>60); Globulin 3.8 g/dL (2.2-4.2); Glucose 102 mg/dL (74-106); Potassium 3.9 mmol/L (3.5-5.1); Protein, Total 7.4 g/dL (6.4-8.2); Sodium Level 143 mmol/L (136-145)
== END | disposition home or self-care (01) ==
LOC: BIMLAB 12:09
PROVIDERS: PCP Family Medicine; Referring Provider Family Medicine; Visit Provider Family Medicine
DX: I10 Essential (primary) hypertension (principal); R53.83 Other fatigue
CPT/HCPCS: 36415; 80053; 85025